=== PATIENT | female | born 1955 | race African-American/Black ===

== ENCOUNTER → 2021-01-12 | Outpatient (CLI) | payer OTHER ==
[~2021-01-12] MED LIST: ABILIFY 5 MG TAB5 M1 PO; AMARYL2 MG PO; CIPROFLOXACIN500 M1 PO; FLEXERIL PO; HUMALOG100 UNIT/1 SQ; LANTUS SC; LASIX 40 MG TAB40 M1 GT; LYRICA100 MG PO; NORCO 5-325 TA1 EACH PO; TRILEPTAL600 MG PO; WELLBUTRIN XL300 M1 PO; ZOFRAN ODT4 MG PO
== END | disposition home or self-care (01) ==
LOC: SPEC 11:24 → EDSTATUS 15:22
PROVIDERS: ATTEND Urology
DX: Z45.2 Encounter for adjustment and management of vascular access device (principal); Z79.899 Other long term (current) drug therapy; Z88.8 Allergy status to other drugs, medicaments and biological substances

== ENCOUNTER 2021-02-04 09:17 | Observation (INO) | payer OTHER ==
[~2021-02-04] VITALS: Ht 177.8 cm; Wt 149.7 kg
[2021-02-04 10:00] VITALS: BP 148/42
[2021-02-04 10:30] LABS: HEMATOCRIT 26.8 % (37.0-47.0); HEMOGLOBIN 8.5 gm/dL (12.0-15.0); MCH 29.2 pg (26.0-34.0); MCHC 31.8 g/dL (28.0-37.0); MCV 91.8 fL (80.0-100.0); RBC 2.92 mil/uL (4.20-5.00); RDW 19.7 % (10.5-14.5)
[2021-02-04 10:41] LABS: CALCIUM 8.5 mg/dL (8.5-10.1); CREATININE 2.1 mg/dL (0.6-1.0)
[2021-02-04 10:46] LABS: POTASSIUM 4.2 mmol/L (3.5-5.1)
[2021-02-04] MEDS ORDERED: NORVASC10 MG PO (11:09)
[2021-02-04] MEDS ORDERED: VITAMIN C500 M2 PO (11:11)
[2021-02-04] MEDS ORDERED: ASA81BEC PO (11:11)
[2021-02-04] MEDS ORDERED: IMURAN 50MG TAB50 M1 PO (11:12)
[2021-02-04] MEDS ORDERED: BUPROPION XL300 MG PO ×2 (11:12→11:13)
[2021-02-04] MEDS ORDERED: FLEXERIL PO (11:15)
[2021-02-04] MEDS ORDERED: ENOXAPARIN30 MG/0.1 SUBQ (11:15)
[2021-02-04] MEDS ORDERED: LANTUS SUBQ (11:17)
[2021-02-04] MEDS ORDERED: HYDRALAZINE 2525 MG PO (11:17)
[2021-02-04] MEDS ORDERED: HUMALOG KW100 UNIT/1 SUBQ (11:19)
[2021-02-04] MEDS ORDERED: ISOSORBIDE DINI30 MG PO (11:19)
[2021-02-04] MEDS ORDERED: NEURONTIN100 MG PO (11:20)
[2021-02-04] MEDS ORDERED: KAYEXALATE15 GM/601 PO (11:24)
[2021-02-04] MEDS ORDERED: LIDODERM1 EACH TOP (11:26)
[2021-02-04] MEDS ORDERED: UNICOMPLEX M TA1 TA1 PO (11:26)
[2021-02-04] MEDS ORDERED: RAYOS5 MG PO (11:27)
[2021-02-04] MEDS ORDERED: TORSEMIDE20 MG PO (11:28)
[2021-02-04] MEDS ORDERED: VITAMIN B-1100 M2 PO (11:28)
[2021-02-04] MEDS ORDERED: PROTONIX40 M2 PO (11:28)
[2021-02-04] MEDS ORDERED: MESTINON60 MG PO (11:29)
--- NOTE | 2021-02-04 16:13 | NUR ---
PT ARRIVED TO CCU ROOM 219 S/P CATH FOR EXTENDED RECOVERY. PT SET UP ON Q30 MIN VITALS PER SLIP FILLER RN. PT IS CURRENTLY ON BEDREST AND WILL BE OFF OF BEDREST AT 1750. PT IS TO DISCHARGE AT 1750.
[2021-02-04 16:17] VITALS: BP 142/49
--- NOTE | 2021-02-04 16:25 | NUR ---
PT'S TRANSPORTATION [facility] [phone]. RN CALLED BUT THEY STATED TO CALL WHEN PT IS READY TO LEAVE UNIT AND THEY WILL SEND TRANSPORTATION.
[2021-02-04 16:30] VITALS: BP 156/64
[2021-02-04 17:00] VITALS: BP 135/44
[2021-02-04 17:30] VITALS: BP 146/40
--- NOTE | 2021-02-04 17:48 | NUR ---
RN CALLED [facility] AT 1615 TO SET UP TRANSPORTATION FOR PT TO RETURN TO [facility]. [facility] STATED THEY CAN NOT ARRANGE TRANSPORTATION UNTIL RIGHT WHEN THE PT IS READY TO PROCUREMENT OFFICER. PT PROCUREMENT OFFICER TIME IS 1800. THIS RN CALLED AT 1745 TO ARRANGE 1800 PICKUP AND IS NOW BEING TOLD PROCUREMENT OFFICER FROM [facility] WILL NOT BE READY FOR ANOTHER 1 1/2-2 HOURS MAKING PROCUREMENT OFFICER TIME APPROXIMATELY 7:30-8:00 PM GA [phone].
--- NOTE | 2021-02-04 20:20 | NUR ---
1915- [facility] PICKED PT UP VIA STRETCHER. PT GIVEN D/C PAPERWORK AND IV AND RAGLAND CATHETER REMOVED. PT'S GROIN SITE REMAINS CDI, SOFT, NO HEMATOMA PRESENT. QUESTIONS ANSWERED.
== END 2021-02-04 19:30 ==
LOC: CATH 09:17 → 2N 16:23
PROVIDERS: ADMIT Nuclear Medicine Nuclear Cardiology; ATTEND Nuclear Medicine Nuclear Cardiology
DX: I70.213 Atherosclerosis of native arteries of extremities with intermittent claudication, bilateral legs (principal); L97.929 Non-pressure chronic ulcer of unspecified part of left lower leg with unspecified severity; I10 Essential (primary) hypertension; I70.1 Atherosclerosis of renal artery; E78.5 Hyperlipidemia, unspecified; Z79.899 Other long term (current) drug therapy

== ENCOUNTER 2021-05-26 13:12 | Inpatient (IN) | payer OTHER ==
[~2021-05-26] VITALS: Ht 162.6 cm; Wt 165.7 kg
--- NOTE | ~2021-05-26 | EMS ---
[facility] [address] [place] [address] EMS Patient Care Report Name: DELGADO BIGGS Room #: REG LISA Mckeon#: [id number] Admission: 05/26/21 Attend Phys: Discharge: Date of : 57 Report #: [id number] THIS REPORT FOR: //name// Report Transmitted: 05/26/2021 15:58 EMS Care Summary [place], [place]/[facility] Incident [id number] @ 05/26/2021 12:44 Incident Location [address] Patient DELGADO BIGGS Female, 65 Years 1955 Patient Address [address] [place] [address] Patient History Chronic Obstructive Pulmonary Disease (COPD),Hypertension (HTN),Morbid Obesity,Edema,Chronic Kidney Disease,Type 2 Diabetes,Cellulitis,Methicillin-resistant Staphylococcus aureus (MRSA), Patient Allergies Sulfa,Shrimp allergy,Amoxicillin, Patient Medications Acetaminophen, Gabapentin, ASA, Aripiprazole, Amlodipine, Protonix, Torsemide, Chief Complaint Altered Mental Status Disposition Transported No Lights/[place] [facility] Reason Sick Person Transported To [facility] Narrative M36 dispatched on a sick person. M36 arrived to half-way to find PT seated [facility] [address] [place] [address] EMS Patient Care Report Name: DELGADO BIGGS Room #: REG Linda#: [id number] Admission: 05/26/21 Attend Phys: Discharge: Date of : 57 Report #: [id number] in bed with head slumped forward. PT airway repositioned by EMS. PT alert to pain initially. PT chief complaint altered mental status. NH staff stated PT "dealing with retaining fluid for one week before today." NH staff stated PT normally alert and oriented x4. NH staff stated PT "not getting better with the meds for her fluid." NH staff stated history of chronic kidney disease "but not on dialysis yet." PT moved to stretcher by six person sheet lift. PT secured with seatbelts. PT abdi catheter bag found to have uncloudy yellow liquid in it. PT vitals monitored in route. PT report given. PT moved to hospital bed via four person sheet lift. PT care and belongings transferred to ER staff at [facility] without incident. M36 placed back in service. Initial Vitals @12:59P: 68,R: 12,BP: 148/66,Pain: 6/10,GCS: 12,SpO2: 55,Revised Trauma: 11, @13:05P: 68,R: 16,BP: 156/76,Pain: 6/10,GCS: 13,Glucose: 152,SpO2: 100,Revised Trauma: 12, Assessments @12:53MENTAL:Unresponsive,SKIN:HEENT:Eyes: Left: Constricted,Eyes: Right: Constricted,Neck/Airway: Obstructed,LUNG SOUNDS:ABDOMEN:PELVIS//GI:Pelvis GUOther,EXTREMITIES:Left Arm: Edema,Left Leg: Edema,Right Leg: Edema,Right Arm: Edema,PULSE:Radial: 2+ Normal,NEURO:@13:06MENTAL:Person Oriented,Event Oriented,Place Oriented,Confused,SKIN:Pale,HEENT:LUNG SOUNDS:ABDOMEN:PELVIS//GI:EXTREMITIES:PULSE:NEURO: Impression Altered Mental Status Procedures @12:55ALS AssessmentResponse: UnchangedSucceeded@13:06Oxygen FlowRate: 10 Device: Non Re-breather Mask (NRB) Response: Improvedcceed Timeline 12:42,Call Received 12:42,Dispatch Notified 12:44,Dispatched 12:44,En Route 12:51,On Scene 12:52,At Patient 12:55,ALS Assessment,Response: UnchangedSucceeded, 12:59,BP: 148/66 M,PULSE: 68,RR: 12 R,SPO2: 55 Ox,ETCO2: ,BG: ,PAIN: 6,GCS: 12, 13:05,BP: 156/76 M,PULSE: 68,RR: 16 R,SPO2: 100 Ox,ETCO2: ,B,PAIN: 6,GCS: 13, 13:06,Oxygen FlowRate: 10 Device: Non Re-breather Mask (NRB) Response: [facility] [place][note 2], [address] [address] EMS Patient Care Report Name: DELGADO BIGGS Room #: REG [facility].R.#: [id number] Admission: 05/26/21 Attend Phys: Discharge: Date of : 57 Report #: [id number] 13:06,Depart Scene 13:07,At Destination 13:22,Call Closed Disclaimer v1.1 Copyright 2020 [employer] This EMS Care Summary contains data elements from the applicable legal record (which may be displayed differently). It is designed to provide pertinent information for the following purposes: continuity of care, clinical quality, and state data reporting. The complete legal record is available to ED staff and administrators of the receiving hospital in [employer] Patient Tracker. All data is provided "as is."
[~2021-05-26 13:12] MED LIST changes: +ASA81BEC PO; +BUPROPION XL300 MG PO; +ENOXAPARIN30 MG/0.1 SUBQ; +HUMALOG KW100 UNIT/1 SUBQ; +HYDRALAZINE 2525 MG PO; +IMURAN 50MG TAB50 M1 PO; +ISOSORBIDE DINI30 MG PO; +KAYEXALATE15 GM/601 PO; +LANTUS SUBQ; +LIDODERM1 EACH TOP; +MESTINON60 MG PO; +NEURONTIN100 MG PO; +NORVASC10 MG PO; +PROTONIX40 M2 PO; +RAYOS5 MG PO; +TORSEMIDE20 MG PO; +UNICOMPLEX M TA1 TA1 PO; +VITAMIN B-1100 M2 PO; +VITAMIN C500 M2 PO
[2021-05-26 13:52] LABS: HEMATOCRIT 31.5 % (37.0-47.0); MCH 26.8 pg (26.0-34.0); MCHC 31.9 g/dL (28.0-37.0); MCV 84.2 fL (80.0-100.0); PLATELET COUNT 221 thou/uL (150-400); RBC 3.74 mil/uL (4.20-5.00); RDW 22.4 % (10.5-14.5)
[2021-05-26 13:57] LABS: URINE BILIRUBIN NEGATIVE (Negative); URINE BLOOD 3+ (Negative); URINE COLOR YELLOW; URINE GLUCOSE-RANDOM* NEGATIVE (Negative); URINE KETONES NEGATIVE (Negative); URINE PROTEIN (DIPSTICK) TRACE (Negative); URINE UROBILINOGEN 0.2 E.U./dl (0.2-1.0)
[2021-05-26 14:01] LABS: URINE CLARITY SL HAZY; URINE LEUKOCYTES-REFLEX 3+ (Negative); URINE NITRITE-REFLEX POSITIVE (Negative)
[2021-05-26 14:06] LABS: SQUAMOUS 0-3 Few /LPF (0-3)
[2021-05-26 14:07] LABS: BACTERIA-REFLEX >30 Many /HPF (None Seen); CASTS None Seen /LPF (None Seen); URINE WBC-REFLEX 6-15 Few /HPF (0-5)
[2021-05-26 14:07] LABS: CALCIUM 8.2 mg/dL (8.5-10.1); POTASSIUM 3.4 mmol/L (3.5-5.1)
[2021-05-26 14:08] LABS: CRYSTALS None Seen /LPF (None Seen)
[2021-05-26 14:15] LABS: ALBUMIN 3.2 g/dL (3.4-5.0); TOTAL BILIRUBIN 0.9 mg/dL (0.2-1.0); TOTAL PROTEIN 7.6 g/dL (6.4-8.2)
[2021-05-26 14:24] LABS: ABSOLUTE NEUTROPHILS 10.6 thou/uL (1.4-8.2); ANISOCYTOSIS 1+
[2021-05-26 14:30] LABS: BE(vivo) 12.6 mmol/L (-2 to +3); HCO3 37.7 mmol/L (22.0-26.0); PCO2 51.6 mmHg (35.0-45.0); PO2 162.9 mmHg (80.0-100.0); pH 7.482 (7.360-7.450); sO2 99.2 % (92.0-98.0)
[2021-05-26 14:32] LABS: APTT 30.2 Seconds (24.5-32.8); INR 1.17; PROTIME 12.7 Seconds (10.5-12.1)
--- NOTE | 2021-05-26 17:55 | NUR ---
65-year-old female presented to ED on 05-26-21 from [facility] for altered mental status fluid retention and shortness of air. ID NOW in the ED is Negative and per ED Triage Assessment showing as not vaccinated; however the patient reports to ED that she is vaccinated. [facility] to verify and notify staff at [facility]. The patient has been admitted for acute hypoxic respiratory failure secondary to fluid overload, CHF Exacerbation, UTI, Elevated D-dime, Acute on Chronic Renal Failure, HTN, Hypokalemia, IDDM, PVD/PAD, Myasthenia gravis, diverticulosis, depression and obesity. Kylie Orr is listed as cousin and family contact at [phone]. Spoke with Shabbir liaison with [facility] who will follow patient while in house with anticipated discharge back to [facility]. CM will continue to follow for discharge needs as plan of care by medical team is reviewed for discharge need.
--- NOTE | 2021-05-26 18:00 | NUR ---
CM UPDATED: [facility] confirmed that patient was fully vaccinated on 03/05 and 04/01.
[2021-05-26 21:06] LABS: HEMATOCRIT 28.6 % (37.0-47.0); MCH 26.3 pg (26.0-34.0); MCHC 31.6 g/dL (28.0-37.0); MCV 83.3 fL (80.0-100.0); RBC 3.44 mil/uL (4.20-5.00); RDW 22.5 % (10.5-14.5); WBC 13.4 thou/uL (4.0-11.0)
[2021-05-26 21:22] LABS: INR 1.3
[2021-05-26 23:15] VITALS: BP 153/66
[2021-05-27 04:18] VITALS: BP 167/60
[2021-05-27] MEDS ORDERED: SENNA PLUS TAB1 EACH PO (04:25)
[2021-05-27] MEDS ORDERED: TRAVOPROST2.5 ML OPHTHALMIC (04:25)
[2021-05-27] MEDS ORDERED: FLONASE 0.05%50 MCG NARES (04:33)
[2021-05-27] MEDS ORDERED: HYDROCODON-ACE1 EAC7 PO (04:33)
[2021-05-27 04:53] VITALS: BP 160/57
[2021-05-27 05:31] LABS: ABSOLUTE NEUTROPHILS 9.3 thou/uL (1.4-8.2); BASOPHILS 0.7 % (0.0-2.0); EOSINOPHILS 2.1 % (0.0-3.0); MCH 26.5 pg (26.0-34.0); MCV 82.9 fL (80.0-100.0); MONOCYTES 8.7 % (1.0-8.0); PLATELET COUNT 208 thou/uL (150-400); POLYS 80.5 % (36.0-66.0); RBC 3.38 mil/uL (4.20-5.00); RDW 21.6 % (10.5-14.5); WBC 11.6 thou/uL (4.0-11.0)
[2021-05-27 05:40] LABS: CALCIUM 8.3 mg/dL (8.5-10.1); CREATININE 2.6 mg/dL (0.6-1.0); PHOSPHORUS 5.1 mg/dL (2.5-4.9); POTASSIUM 3.1 mmol/L (3.5-5.1)
[2021-05-27 07:21] VITALS: BP 143/71
--- NOTE | 2021-05-27 10:42 | NUR ---
Notification of "ulcer". Admitted with CHF exacerbation, fluid overload. Pt with extreme class III obesity, BMI 63.8, also hx DM, myastenia gravis, PVD, HTN. Wt is up nearly 40 lb from 01/2021. On lasix, renal will be managing fluid status. On heart healthy, 2g Na diet. Pt voiced no questions regarding diet order, except request to have fresh fruit on each tray. BG adequate. Does have toe amputation. Low nutrition risk.
--- NOTE | 2021-05-27 11:13 | 2DMMODE ---
[facility] [place] [address] 2 D/M-MODE ECHOCARDIOGRAM Name: DELGADO BIGGS Room #: 203-P ADM IN M.R.#: [id number] Admission: 05/26/21 Attend Phys: Edilson Pinto MD Discharge: Date of : 57 Report #: [id number] THIS REPORT FOR: cc: Micah Fonseca MD, Christopher B. MD Santiago, Patrick MD [facility] ~ APPROVED REPORT Study performed: 05/27/2021 09:12:49 EXAM: Comprehensive 2D, Doppler, and color-flow Echocardiogram Patient Location: Bedside Room #: 203 Status: routine BSA: 2.55 HR: 59 bpm BP: 143/71 mmHg Rhythm: Bradycardia Other Information Study Quality: Technically Difficult Technically limited study due to body habitus, inability to position patient. Indications Congestive Heart Failure Diabetes Hypertension/HDD 2D Dimensions IVSd: 11.47 (7-11mm) LVDd: 50.93 mm PWd: 11.32 (7-11mm) LVDs: 27.65 (25-40mm) Left Atrium: 42.19 (27-40mm) Aortic Root: 27.69 mm IVC: 28.00 mm Aortic Valve AoV Peak Yousuf.: 2.00 m/s AO Peak Gr.: 16.00 mmHg LVOT Max P.18 mmHg LVOT Max V: 1.14 m/s Mitral Valve E/A Ratio: 0.3 [facility] [address] [place] [address] 2 D/M-MODE ECHOCARDIOGRAM Name: DELGADO BIGGS Room #: 203-P [facility] IN ..#: [id number] Admission: 05/26/21 Attend Phys: Edilson Pinto, Discharge: Date of : 57 Report #: [id number] MV Decel. Time: 288.98 ms MV E Max Yousuf.: 0.36 m/s MV A Yousuf.: 1.14 m/s MV PHT: 83.80 ms Pulmonary Valve PV Peak Yousuf.: 1.45 m/s PV Peak Gr.: 8.43 mmHg Tricuspid Valve TR Peak Yousuf.: 4.00 m/s TR Peak Gr.: 64.10 mmHg PA Pressure: 74.00 mmHg Left Ventricle The left ventricle is normal size. There is normal LV segmental wall motion. There is normal left ventricular wall thickness. The left ventricular systolic function is normal. The left ventricular ejection fraction is within the normal range. LVEF is 65-70%. This study is not technically sufficient to allow evaluation of the LV diastolic function. Right Ventricle Right ventricle is at the upper limits of normal. The right ventricular systolic function is normal. Atria Left atrium is not well visualized. Right atrium is not well visualized. Aortic Valve The aortic valve is normal in structure. No aortic regurgitation is present. There is no aortic valvular stenosis. Mitral Valve The mitral valve is normal in structure. Mild mitral regurgitation. No evidence of mitral valve stenosis. Tricuspid Valve The tricuspid valve is normal in structure. There is mild tricuspid regurgitation. Estimated PAP 74 mmHg. There is severe pulmonary hypertension. Pulmonic Valve The pulmonary valve is normal in structure. There is no pulmonic valvular regurgitation. [facility] [address] [address] 2 D/M-MODE ECHOCARDIOGRAM Name: DELGADO BIGGS Shon Room #: 203-P [facility] IN .R.#: [id number] Admission: 05/26/21 Attend Phys: Edilson Pinto, Discharge: Date of : 57 Report #: [id number] Great Vessels The aortic root is normal in size. IVC is dilated and collapses <50% with inspiration. Pericardium There is no pericardial effusion. <Conclusion> Normal left ventricular size/wall thickness Hyperdynamic systolic function, ejection fraction 65% Normal right ventricular size/function Normal atrial size Color-flow Doppler study was performed of the aortic/mitral/tricuspid/pulmonary valve Normal aortic valve structure and function Mild mitral valve insufficiency Mild tricuspid valve insufficiency Severe pulmonary hypertension PA pressure estimated 74 mmHg No pericardial effusion Normal aortic root size. <ELECTRONICALLY SIGNED> By: Josué Winters MD, [facility] 05/27/21 1112 11 11 Josué Winters MD, FACC /INF
[2021-05-27 11:48] VITALS: BP 127/47
--- NOTE | 2021-05-27 14:52 | NUR ---
PT RESTING COMFORTABLY. HEPARIN GTT IN PLACE AND TITRATED PER [facility] PROTOCAL. PLAN FOR ECHO TODAY. WOUND CARE CONSULTED. PT AFEBRILE, ADEQUATE UOP, BM X2, APPROPRIATE APPETITE. POTASSIUM REPLACED PER [facility] PROT[facility]. PT HAS BEEN THOUROUGHLY UPDATED AND EDUCATED ON PT CONDITION AND POC. PT SLOWLY PROGRESSING TOWARDS POC.
[2021-05-27 15:27] VITALS: BP 125/63
--- NOTE | 2021-05-27 17:46 | NUR ---
Case discussed with the care team. Pt is from fdc care at [facility]. Update provided. They are holding her bed. Pt now on heprin gtt and getting echo. Clinical updated faxed per the dc vacation planner. Discharge timeframe is uncertain. Will follow.
[2021-05-27 20:06] VITALS: BP 136/64
--- NOTE | 2021-05-28 01:26 | NUR ---
ASSUMED CARE OF PT AT 1900, PT SLEEPING IN NO APPARENT DISTRESS. ASSESSMENT COMPLETED NOTED. PT REMAINS ON HEPARIN DRIP AT THIS TIME ORDERED. RAGLAND IN PLACE. PT DENIES PAIN, WILL CONTINUE TO WORK TOWARDS PT'S POC.
[2021-05-28 04:27] VITALS: BP 153/70
--- NOTE | 2021-05-28 07:08 | EKG ---
[address] [address] ELECTROCARDIOGRAM REPORT Name: DELGADO BIGGS Room #: 203-P ADM IN M.R.#: [id number] Admission: 05/26/21 Attend Phys: Edilson Pinto MD Discharge: Date of : 57 Report #: [id number] [facility] ED Test Date: 2021-05-26 Test Time: 13:18:26 Pat Name: DELGADO BIGGS Department: Room: [facility] Gender: F Clutch Inspector: : 1955 Requested By: Benito Lim Order Number: [id number] MD: Josué Winters Measurements Intervals Raymond Rate: 71 P: 0 MA: QRS: 44 QRSD: 126 T: QT: 444 QTc: 483 Interpretive Statements NSR, artifact Nonspecific intraventricular conduction delay Nonspecific T abnormalities, diffuse leads Compared to ECG 06/05/2013 11:56:38 Intraventricular conduction delay now present T-wave abnormality now present Sinus bradycardia no longer present Electronically Signed On 05-28-2021 7:08:21 CDT by Josué Winters [email or web address] <ELECTRONICALLY SIGNED> By: Josué Winters MD, FACC 05/28/21 0708 1318 1318 Josué Winters MD, [facility] /EPI
[2021-05-28 07:30] VITALS: BP 146/63
[2021-05-28 09:02] LABS: CALCIUM 8.4 mg/dL (8.5-10.1); CREATININE 2.6 mg/dL (0.6-1.0); POTASSIUM 3.9 mmol/L (3.5-5.1)
--- NOTE | 2021-05-28 11:10 | NUR ---
FAXED CLINICAL UPDATES AND NEGATIVE COVID RESULT (05/26/21) TO [facility]. WILL CONFIRM DOLLY/LIAISON RECEIVED. KRISAT Handley [phone]; FAX [phone]; M [phone] DOLLY/LIAISON
--- NOTE | 2021-05-28 11:13 | NUR ---
FAXED CLINICAL UPDATES AND NEGATIVE COVID RESULT (05/26/21) TO [facility] WITH NOTATION THAT PATIENT WILL DISCHARGE ON 05/31/21. WILL CONFIRM WITH DOLLY/LIAISON THAT THEY RECEIVED. [facility] P [phone]; FAX [phone]; Gavi [phone] DOLLY
[2021-05-28 11:53] VITALS: BP 137/49
--- NOTE | 2021-05-28 12:02 | NUR ---
No weekend dc anticipated. [facility] updated. Will f/u Monday to see if the pt is medically ready to dc back to ltc there.
[2021-05-28 12:41] VITALS: BP 137/49
--- NOTE | 2021-05-28 13:55 | NUR ---
PT RESTING COMFORTABLY TODAY. DOWN TO NUCLEAR MED FOR V/Q SCAN, PERFUSION ONLY. HEPARIN GTT IN PLACE, WITH THERAPEUTIC APTT. NEXT DRAW SCHEDULED FOR 1445. PT AFEBRILE, ADEQUATE UOP, BM X1, APPROPRIATE APPETITE. PT CONTINUES TO BE SOMULENT TODAY. PT HAS BEEN THOUROUGHLY UPDATED AND EDUCATED ON PT CONDITION AND POC. PT SLOWLY PROGRESSING TOWARDS POC.
[2021-05-28 16:25] VITALS: BP 137/66
--- NOTE | 2021-05-28 17:02 | NUR ---
Pt had called security this afternoon requesting assitance locating her orange pencil bag which she uses as a purse with ID etc... It was not in her room or with security or in the ER. Telephonic Rn called the facility[facility] and they brought if over to her and is now in the room with her. Nursing in the room as well as aware. Security also aware that it has been located.
[2021-05-28 19:30] VITALS: BP 144/56
[2021-05-28 19:33] LABS: PROT/CREAT RATIO 0.3; URINE CREATININE-RANDOM* 48.4 mg/dL; URINE PROTEIN-RANDOM* 13.4 mg/dL (<11.9)
[2021-05-29] VITALS (7 sets, daily range): BP systolic 125–180; BP diastolic 55–67
[2021-05-29 00:06] LABS: GLYCOHEMOGLOBIN (HGB A1C) 6.4 % (4.8-5.6)
--- NOTE | 2021-05-29 04:46 | NUR ---
Pt. rested quietly at intervals during the night when checked on during frequent rounds. She c/o bilateral arm pain and back pain. Po pain meds given with some relief of pain (see emar). Heparin gtt. infusing without difficulty. Bed alarm is on.
[2021-05-29 06:20] LABS: HEMATOCRIT 27.9 % (37.0-47.0); HEMOGLOBIN 9.1 gm/dL (12.0-15.0); MCHC 32.5 g/dL (28.0-37.0); RBC 3.36 mil/uL (4.20-5.00); RDW 21.4 % (10.5-14.5); WBC 8.9 thou/uL (4.0-11.0)
[2021-05-29 06:31] LABS: ALBUMIN 3.3 g/dL (3.4-5.0); CALCIUM 8.2 mg/dL (8.5-10.1); CREATININE 2.2 mg/dL (0.6-1.0); PHOSPHORUS 3.7 mg/dL (2.5-4.9); POTASSIUM 3.9 mmol/L (3.5-5.1)
--- NOTE | 2021-05-29 18:56 | NUR ---
PT RESTED IN BED COMFORTABLY THIS SHIFT TURNING Q 2 HOURS. PT TOOK IN GOOD PO AND REMIANED ON 2LNC. COPNTINUED LASIX AND RAGLAND CATHETER MAINTIANED. WILL CONTINUE TO ASSESS.
--- NOTE | 2021-05-30 03:38 | NUR ---
Assumed pt care at 1900. Pt is alert and oriente but very lethargic. No sign of distress noted in pt. Pt is stable. Assessment completed and documented. Pain med administered to pt. Kimball in place. Scheduled meds administered to pt. No acute events through the night. Continue to monitor. No further needs at this time.
[2021-05-30 04:30] VITALS: BP 142/58
[2021-05-30 05:53] LABS: ALBUMIN 3.1 g/dL (3.4-5.0); CREATININE 2.1 mg/dL (0.6-1.0); PHOSPHORUS 3.2 mg/dL (2.5-4.9); POTASSIUM 4.3 mmol/L (3.5-5.1)
[2021-05-30 07:26] VITALS: BP 168/66
[2021-05-30 11:55] VITALS: BP 145/60
[2021-05-30 15:22] VITALS: BP 149/63
--- NOTE | 2021-05-30 15:41 | NUR ---
PT ALERT AND ORIENTED TIMES THREE. VSS, RAGLAND TO DD. PT C/O PAIN PRN PAIN MEDICATIONS GIVEN WITH GOOD RELIEF. PT TOLERATES MEDS AND MEALS. WILL CONTINUE TO MONITOR.
[2021-05-30 20:05] VITALS: BP 149/53
[2021-05-31 03:05] VITALS: BP 149/63
[2021-05-31 05:06] LABS: ALBUMIN 3.3 g/dL (3.4-5.0); CALCIUM 8.4 mg/dL (8.5-10.1); CREATININE 2.2 mg/dL (0.6-1.0); PHOSPHORUS 3.7 mg/dL (2.5-4.9)
[2021-05-31 08:15] VITALS: BP 151/51
--- NOTE | 2021-05-31 11:00 | HC ---
[facility] [place] [address] CONSULTATION Name: DELGADO BIGGS Room #: 203-P ADM IN M.R.#: [id number] Admission: 05/26/21 Attend Phys: Edilson Pinto MD Discharge: Date of : 57 Report #: [id number] THIS REPORT FOR: cc: Micah Fonseca MD, Christopher B. MD Althoff,Jarvis Bocanegra MD ~ DATE OF SERVICE: 05/28/2021 CHIEF COMPLAINT: Left heel ulcer and bilateral lower extremity edema. HISTORY OF PRESENT ILLNESS: This is a 65-year-old female patient whom I have seen in the past over at [facility]. She was admitted to the hospital with worsening shortness of breath and felt to have significant congestive heart failure. She has had a chronic ulcer to her left heel. I have been asked to see her with regard to wound care. She denies pain associated with this and states she is overall feeling somewhat better this morning. PAST MEDICAL HISTORY: Positive for type 2 diabetes mellitus, she is status post left great toe amputation, history of hypertension, myasthenia gravis, neuropathy, congestive heart failure, peripheral vascular disease, hyperlipidemia, coronary artery disease, pulmonary hypertension, history of chronic kidney disease. SOCIAL HISTORY: Negative for alcohol or tobacco use. FAMILY HISTORY: Noncontributory. CURRENT MEDICATIONS: Include acetaminophen, amlodipine, aripiprazole, Wellbutrin, cyclobenzaprine, furosemide, gabapentin, glucagon, hydrocodone, insulin, latanoprost, prednisone, pyridostigmine. ALLERGIES: CLAVULANIC ACID AND AMOXICILLIN. REVIEW OF SYSTEMS: CONSTITUTIONAL: The patient denies fever, chills or weight loss. NEUROLOGICAL: The patient denies focal weakness, numbness, tingling. EYES: The patient denies visual changes, redness or drainage. ENT: The patient denies earache, nasal drainage, sore throat. CARDIOVASCULAR: The patient denies chest pain or palpitations. PULMONARY: The patient does note shortness of breath, especially with exertion and orthopnea. GASTROINTESTINAL: The patient denies nausea, vomiting, diarrhea or abdominal pain. ORTHOPEDIC: The patient complains of swelling of lower extremities and a chronic ulcer to her left heel. [address] [address] CONSULTATION Name: DELGADO BIGGS Room #: 203-P ADM IN .R.#: [id number] Admission: 05/26/21 Attend Phys: Edilson Pinto MD Discharge: Date of : 57 Report #: [id number] Others systems in a 14-point review of systems are negative. PHYSICAL EXAMINATION: VITAL SIGNS: At this time include temperature 97.7, pulse 52, respiratory rate of 18, blood pressure 146/63. GENERAL: This is a chronically ill-appearing female patient who appears to be in mild discomfort. HEENT: Head is normocephalic. Nose and throat are clear. NECK: Supple. LUNGS: Diminished. HEART: Irregular. ABDOMEN: Obese, soft, nontender. EXTREMITIES: Lower extremities demonstrate feet are warm and dry. She has 3+ edema to both lower extremities from the mid thigh to her feet. There is a small circular ulceration to her left heel that is healthy, clean and granulating without evidence of infection. LABORATORY STUDIES: Include white blood cell count 11.6 with hemoglobin 9.0, hematocrit of 28.0, sodium 143, potassium 3.9, chloride 98, CO2 of 42, BUN 56, creatinine 2.6, glucose is 262, albumin is 3.0. CLINICAL IMPRESSION: 1. Stage 3 pressure ulceration to the left heel. 2. Bilateral lower extremity lymphedema, likely secondary to volume overload due to congestive heart failure and chronic kidney disease. 3. Type 2 diabetes mellitus. 4. Morbid obesity. 5. History of myasthenia gravis. RECOMMENDATIONS: At this point in time, we will recommend Xeroform and a border foam to the left heel daily. She will need Prevalon boots while in bed. Tubigrip stockings would be a good place to start for very gentle compression. I do not want to do too much of a fluid shift with aggressive wrappings due to her exacerbation of heart failure, although she may benefit from some lymphedema therapy once her fluid volume status has improved. I appreciate being asked to see her in consultation. <ELECTRONICALLY SIGNED> By: Jarvis Hudson MD 05/31/21 1100 1054 11 Jarvis Hudson MD /nt
[2021-05-31 16:25] VITALS: BP 155/62
--- NOTE | 2021-05-31 16:35 | NUR ---
ASSESSMENT CHARTED. MEDS PER MAR - COLTON DIET AND FLUIDS. NO CO'S OF PAIN OR NAUSEA. PT HAS SPENT THE DAY RESTING IN BED. STARTED ON LEVAQUIN ORDERED. INSULIN DOSE INCREASED FOR THE EVENING. ACCUCHECKS A CHARTED - COVERED PER SSI. SEEN BY WOULD CARE - XEROFORM AND MEPILEX PLACED TO LEFT HEEL ORDERED 0 AWAITING HEEL PROTECTORS AND LUCY WRAPS FROM [facility] SO THEY CAN BE APPLIED. PT WITH NO CO'S AT THE PRESENT TIME. PT CAN BE VERY LETHARGIC AT TIMES DOES AWAKEN FAIRLY EASILY.
[2021-05-31 19:32] VITALS: BP 155/56
[2021-06-01 04:07] VITALS: BP 145/60
[2021-06-01 05:21] LABS: HEMATOCRIT 27.7 % (37.0-47.0); HEMOGLOBIN 9.1 gm/dL (12.0-15.0); MCHC 32.9 g/dL (28.0-37.0); RBC 3.37 mil/uL (4.20-5.00); RDW 22.2 % (10.5-14.5); WBC 7.8 thou/uL (4.0-11.0)
[2021-06-01 05:25] LABS: ALBUMIN 3.1 g/dL (3.4-5.0); CALCIUM 8.6 mg/dL (8.5-10.1); CREATININE 2.1 mg/dL (0.6-1.0); PHOSPHORUS 3.7 mg/dL (2.5-4.9); POTASSIUM 4.4 mmol/L (3.5-5.1)
--- NOTE | 2021-06-01 05:56 | NUR ---
HEEL PROTECTORS AND ACEWRAP NOT AVAILABLE THIS SHIFT.ELEVATED BILATERAL LEGS WITH PILLOWS.PAIN WELL CONTROLLED.PATIENT ON ROOM AIR.SMEAR OF BM THIS MORNING.MONITOR SHOWS SB.POC CONTINUED.
[2021-06-01 08:00] VITALS: BP 149/85
[2021-06-01 15:00] VITALS: BP 137/58
--- NOTE | 2021-06-01 15:57 | NUR ---
Patient reports she does not want to return to [facility]. She reports care concerns. Offered for her to speak with liason regarding concerns. [facility] liason to meet with patient.
--- NOTE | 2021-06-01 18:12 | NUR ---
ASSESSMENT CHARTED . MEDS PER DEC - DIET AND FLUIDS. ACCUCHECKS CHARTED - COVERED PER SSI. DRESSING TO L HEEL COMPLETED THEN TUBIGRIP APPLIED AND PROFA BOOTS APPLIED PT GIVEN HYDRO FOR CO'S OF PAIN IN BACK WITH GOOD RELIEF AND FLEXERIL FOR SPASMS WITH EFFECT. NO CO'S AT THE PRESENT TIME.
[2021-06-02 03:35] LABS: ALBUMIN 3.4 g/dL (3.4-5.0); CALCIUM 8.9 mg/dL (8.5-10.1); CREATININE 2.4 mg/dL (0.6-1.0); PHOSPHORUS 4.1 mg/dL (2.5-4.9); POTASSIUM 4.5 mmol/L (3.5-5.1)
[2021-06-02 04:39] VITALS: BP 124/50
--- NOTE | 2021-06-02 07:03 | NUR ---
BM X 1.PAIN WELL CONTROLLED.RAGLAND TO DD.MONITOR SHOWS SB.POC CONTINUED.
[2021-06-02 07:35] VITALS: BP 136/64
[2021-06-02] MEDS ORDERED: KLOR-CON 10 ER10 MEQ PO (11:26)
[2021-06-02] MEDS ORDERED: DEMADEX20 MG PO (11:26)
[2021-06-02] MEDS ORDERED: LANTUS100 UNIT/M SUBQ (11:27)
[2021-06-02] MEDS ORDERED: CEFUROXIME250 MG PO (11:28)
[2021-06-02 11:31] VITALS: BP 153/46
--- NOTE | 2021-06-02 11:42 | NUR ---
Reassessment of px completed at 0850 but documented at 1006.
--- NOTE | 2021-06-02 15:12 | NUR ---
assessment as charted - meds as per dec - given hydocodone for co's of pain with good relief. angie diet and fluids. no co's of nausea. pt transfered back to [facility] this afternoon. report called to unit, pt left unit via stretcher.
--- NOTE | 2021-06-02 17:15 | NUR ---
DOLLY FROM [facility] MET WITH PATIENT. PATIENT IS AGREEABLE TO RETURN TO [facility] TODAY. FAXED ORDERS. CHART COPIED. ROSEMARIE CALHOUN FOR 1500. RN TO call report
== END 2021-06-02 15:36 | DRG 291 ==
LOC: ER 13:12 → 2N 17:12 → EROBS 17:12 → 2N 05-27 05:03
PROVIDERS: Internal Medicine Nephrology; Nurse Practitioner; Nurse Practitioner Family; ADMIT Internal Medicine; ATTEND Internal Medicine
DX: I13.0 Hypertensive heart and chronic kidney disease with heart failure and stage 1 through stage 4 chronic kidney disease, or unspecified chronic kidney disease (principal); L89.623 Pressure ulcer of left heel, stage 3; J96.01 Acute respiratory failure with hypoxia; N39.0 Urinary tract infection, site not specified; N17.9 Acute kidney failure, unspecified; E44.0 Moderate protein-calorie malnutrition; N18.4 Chronic kidney disease, stage 4 (severe); Z68.44 Body mass index [BMI] 60.0-69.9, adult; I50.9 Heart failure, unspecified; Z20.822 Contact with and (suspected) exposure to COVID-19; E11.51 Type 2 diabetes mellitus with diabetic peripheral angiopathy without gangrene; E78.5 Hyperlipidemia, unspecified; I25.10 Atherosclerotic heart disease of native coronary artery without angina pectoris; F32.9 Major depressive disorder, single episode, unspecified; I27.20 Pulmonary hypertension, unspecified; K21.9 Gastro-esophageal reflux disease without esophagitis; I89.0 Lymphedema, not elsewhere classified; E66.01 Morbid (severe) obesity due to excess calories; E87.70 Fluid overload, unspecified; E87.6 Hypokalemia; D64.9 Anemia, unspecified; R53.81 Other malaise; E11.22 Type 2 diabetes mellitus with diabetic chronic kidney disease; G47.33 Obstructive sleep apnea (adult) (pediatric); G70.00 Myasthenia gravis without (acute) exacerbation; E11.42 Type 2 diabetes mellitus with diabetic polyneuropathy; Z79.82 Long term (current) use of aspirin; Z86.14 Personal history of Methicillin resistant Staphylococcus aureus infection; Z89.421 Acquired absence of other right toe(s); Z88.1 Allergy status to other antibiotic agents; Z88.8 Allergy status to other drugs, medicaments and biological substances; Z79.899 Other long term (current) drug therapy
CPT/HCPCS: 10081

== ENCOUNTER → 2021-06-15 | Outpatient (CLI) | payer OTHER ==
[~2021-06-15] MED LIST changes: +CEFUROXIME250 MG PO; +DEMADEX20 MG PO; +FLONASE 0.05%50 MCG NARES; +HYDROCODON-ACE1 EAC7 PO; +KLOR-CON 10 ER10 MEQ PO; +LANTUS100 UNIT/M SUBQ; +SENNA PLUS TAB1 EACH PO; +TRAVOPROST2.5 ML OPHTHALMIC
== END ==
LOC: ULTRA 11:40
PROVIDERS: ATTEND Internal Medicine
DX: N63.20 Unspecified lump in the left breast, unspecified quadrant (principal)

== ENCOUNTER 2021-06-16 16:41 | Emergency (ER) | payer OTHER ==
[~2021-06-16] VITALS: Ht 177.8 cm; Wt 140.6 kg
--- NOTE | ~2021-06-16 | EMS ---
[facility] [address] [place] [address] EMS Patient Care Report Name: DELGADO BIGGS Room #: REG LISA Mckeon#: [id number] Admission: 06/16/21 Attend Phys: Discharge: Date of : 57 Report #: [id number] THIS REPORT FOR: //name// Report Transmitted: 06/16/2021 16:26 EMS Care Summary [place], [place]/[facility] Incident [id number] @ 06/16/2021 16:06 Incident Location [address] Patient DELGADO BIGGS Female, 65 Years 1955 Patient Address [address] [place] [address] Patient History Chronic Obstructive Pulmonary Disease (COPD),Hypertension (HTN),Morbid Obesity,Edema,Chronic Kidney Disease,Type 2 Diabetes,Cellulitis,Methicillin-resistant Staphylococcus aureus (MRSA), Patient Allergies Sulfa,Shrimp allergy,Amoxicillin, Patient Medications Torsemide, Aripiprazole, Acetaminophen, Gabapentin, Protonix, ASA, Amlodipine, Chief Complaint BACK PAIN Disposition Transported No Lights/[place] Dispatch Reason Back Pain (Non-Traumatic) Transported To [facility] Narrative RESPONDED NON-EMERGENT TO [facility] FOR A FALL. UPON ARRIVAL [facility] [address] [place] [address] EMS Patient Care Report Name: DELGADO BIGGS Room #: REG LISA Mckeon#: [id number] Admission: 06/16/21 Attend Phys: Discharge: Date of : 57 Report #: [id number] PATIENT WAS LAYING IN BED WITH COMPLAINT OF BACK PAIN, STATING THAT WHILE RECIEVING A MAMOGRAM YESTERDAY SHE FELL TWICE. COMPLAINED OF LOWER BACK PAIN THAT WAS WORSE THAN THE DAY BEFORE WHEN THE FALL OCCURRED. PATIENT WAS ASSISTED FROM HER BED TO THE STRETCHER BY MY PARTNER AND I. PATIENT WAS SECURED WITH SEAT BELTS AND RAILS UP AND IN THE LOCKED POSITION. PROPER COVID PRECAUTIONS WERE TAKEN AND A MASK WAS PLACED ON THE PATIENT. PATIENT WAS TRANSPORTED TO [facility] AND PATIENT CARE WAS TRANSFERRED TO THE NURSE. Initial Vitals @16:32P: 62,R: 15,BP: 146/62,Pain: 4/10,GCS: 15,CO: 3,SpO2: 91,Revised Trauma: 12, @16:24P: 62,R: 15,BP: 154/66,Pain: 4/10,GCS: 15,CO: 1,SpO2: 89,Revised Trauma: 12, Assessments @16:16MENTAL:Time Oriented,Event Oriented,Place Oriented,Person Oriented,SKIN:No Abnormalities,HEENT:Head/Face: No Abnormalities,Eyes: No Abnormalities,LUNG SOUNDS:ABDOMEN:PELVIS//GI:EXTREMITIES:Left Arm: No Abnormalities,Right Arm: No Abnormalities,PULSE:NEURO:No Abnormalities, Impression Back Pain Procedures @16:16BLS AssessmentResponse: Unchanged@16:18StretcherResponse: Unchanged Timeline 16:03,Call Received 16:03,Dispatch Notified 16:06,Dispatched 16:07,En Route 16:12,On Scene 16:16,At Patient 16:16,BLS Assessment,Response: Unchanged 16:18,Stretcher,Response: Unchanged 16:24,BP: 154/66 M,PULSE: 62,RR: 15 R,SPO2: 89 Ox,ETCO2: ,BG: ,PAIN: 4,GCS: 15, 16:32,BP: 146/62 M,PULSE: 62,RR: 15 R,SPO2: 91 Ox,ETCO2: ,BG: ,PAIN: 4,GCS: 15, 16:33,Depart Scene 16:35,At Destination 17:04,Call Closed Disclaimer v1.1 Copyright 2020 [employer] This EMS Care Summary contains data elements from the applicable legal record (which may be displayed differently). It is designed to provide pertinent information for the following purposes: continuity of care, clinical quality, [address] [address] EMS Patient Care Report Name: DELGADO BIGGS [facility] #: [id number] Admission: 06/16/21 Attend Phys: Discharge: Date of : 57 Report #: [id number] and state data reporting. The complete legal record is available to ED staff and administrators of the receiving hospital in [employer]'s Patient Tracker. All data is provided "as is."
[2021-06-16 23:27] VITALS: BP 150/60
== END 2021-06-16 23:29 ==
LOC: ER 16:41
DX: M54.5 Low back pain (principal); E11.40 Type 2 diabetes mellitus with diabetic neuropathy, unspecified; I13.0 Hypertensive heart and chronic kidney disease with heart failure and stage 1 through stage 4 chronic kidney disease, or unspecified chronic kidney disease; I50.9 Heart failure, unspecified; N18.9 Chronic kidney disease, unspecified; E11.22 Type 2 diabetes mellitus with diabetic chronic kidney disease; I25.10 Atherosclerotic heart disease of native coronary artery without angina pectoris; I73.9 Peripheral vascular disease, unspecified; E78.5 Hyperlipidemia, unspecified; F32.9 Major depressive disorder, single episode, unspecified; K21.9 Gastro-esophageal reflux disease without esophagitis; Z79.4 Long term (current) use of insulin; Z79.899 Other long term (current) drug therapy; Z79.1 Long term (current) use of non-steroidal anti-inflammatories (NSAID); Z79.82 Long term (current) use of aspirin; Z88.1 Allergy status to other antibiotic agents; Z88.8 Allergy status to other drugs, medicaments and biological substances

== ENCOUNTER 2021-08-02 13:01 | Inpatient (IN) | payer OTHER ==
[~2021-08-02] VITALS: Ht 152.4 cm; Wt 152.0 kg
--- NOTE | ~2021-08-02 | EMS ---
[facility] [address] [place] [address] EMS Patient Care Report Name: DELGADO BIGGS Room #: 243-P ADM IN M.R.#: [id number] Admission: 08/02/21 Attend Phys: Shoshana Zambrano MD Discharge: Date of : 57 Report #: [id number] THIS REPORT FOR: //name// Report Transmitted: 08/15/2021 08:47 EMS Care Summary [place], [place]/[facility] Incident [id number] @ 08/02/2021 12:38 Incident Location [address] Patient DELGADO BIGGS Female, 66 Years 1955 Patient Address [address] [place] [address] Patient History Chronic Obstructive Pulmonary Disease (COPD),Hypertension (HTN),Morbid Obesity,Edema,Chronic Kidney Disease,Type 2 Diabetes,Cellulitis,Methicillin-resistant Staphylococcus aureus (MRSA), Patient Allergies Sulfa,Shrimp allergy,Amoxicillin, Patient Medications Acetaminophen, Aripiprazole, Amlodipine, ASA, Torsemide, Protonix, Gabapentin, Chief Complaint Weakness w/fever Disposition Transported No Lights/[place] Dispatch Reason Breathing Problem Transported To [facility] Narrative Called for SOB. Upon arrival, pt was awake and c/o not feeling well. NH staff [address] [address] EMS Patient Care Report Name: DELGADO BIGGS Room #: 243-P [facility] IN [facility].#: [id number] Admission: 08/02/21 Attend Phys: Shoshana Zambrano MD Discharge: Date of : 57 Report #: [id number] reported pt c/o being a little SOB and did not appear to be as socially active as normal. They requested transport to [facility] ER for further eval & tx. Pt moved to a joe-furniture servicer, lifted over to the EMS cot and into the ambulance w/o incident. Vitals obtained. En route: we just went across the street. RR to the ER. Arrived: pt taken to the ER, pt care & report to ER staff. Initial Vitals @PTAP: 88,R: 24,BP: 111/67,Pain: 0/10,GCS: 15,Glucose: 111,SpO2: 80,Revised Trauma: 12, @12:53P: 99,R: 20,BP: 117/62,Pain: 0/10,GCS: 15,Revised Trauma: 12, Assessments @12:42MENTAL:Person Oriented,Event Oriented,Place Oriented,Time Oriented,SKIN:Hot,HEENT:Eyes: Left Pupil: 3-mm,Eyes: Right Pupil: 3-mm,Head/Face: No Abnormalities,Neck/Airway: No Abnormalities,LUNG SOUNDS:General: Vomiting,ABDOMEN:General: Vomiting,PELVIS//GI:EXTREMITIES:Left Arm: No Abnormalities,Right Arm: No Abnormalities,Left Leg: No Abnormalities,Right Leg: No Abnormalities,PULSE:Radial: 2+ Normal,NEURO:No Abnormalities, Impression Generalized Weakness Procedures @12:42 ALS Assessment Response: UnchangedSucceeded @12:49 Stretcher Response: Unchanged Timeline DIAMOND CLEANER,BP: 111/67 M,PULSE: 88,RR: 24 R,SPO2: 80 Ox,ETCO2: ,B,PAIN: 0,GCS: 15, 12:36,Call Received 12:36,Dispatch Notified 12:38,Dispatched 12:38,En Route 12:41,On Scene 12:42,At Patient 12:42,ALS Assessment,Response: UnchangedSucceeded, 12:49,Stretcher,Response: Unchanged 12:53,Depart Scene 12:53,BP: 117/62 M,PULSE: 99,RR: 20 R,SPO2: Ox,ETCO2: ,BG: ,PAIN: 0,GCS: 15, 12:56,At Destination 13:08,Call Closed Disclaimer v1.1 Copyright 2020 [employer] [address] [address] EMS Patient Care Report Name: DELGADO BIGGS Room #: 243-P ADM IN [facility]#: [id number] Admission: 08/02/21 Attend Phys: Shoshana Zambrano MD Discharge: Date of : 57 Report #: [id number] This EMS Care Summary contains data elements from the applicable legal record (which may be displayed differently). It is designed to provide pertinent information for the following purposes: continuity of care, clinical quality, and state data reporting. The complete legal record is available to ED staff and administrators of the receiving hospital in [facility]'s Patient Tracker. All data is provided "as is."
[2021-08-02 13:01] VITALS: BP 131/45
[2021-08-02] MEDS ORDERED: ABILIFY20 MG PO (13:20)
[2021-08-02] MEDS ORDERED: MIRALAX119 GM PO (13:21)
[2021-08-02] MEDS ORDERED: INSULIN AS100 UNIT/2 SUBQ ×2 (13:22→13:23)
[2021-08-02] MEDS ORDERED: METOLAZONE 5 MG5 MG PO (13:23)
[2021-08-02] MEDS ORDERED: LANTUS SUBQ (13:23)
[2021-08-02] MEDS ORDERED: MICONAZOLE5 GM TOP (13:24)
[2021-08-02] MEDS ORDERED: NEURONTIN100 MG PO (13:24)
[2021-08-02 14:02] LABS: HEMATOCRIT 35.3 % (37.0-47.0); HEMOGLOBIN 11.4 gm/dL (12.0-15.0); MCH 26.7 pg (26.0-34.0); MCHC 32.3 g/dL (28.0-37.0); MCV 82.6 fL (80.0-100.0); PLATELET COUNT 252 thou/uL (150-400); RBC 4.27 mil/uL (4.20-5.00); WBC 17.8 thou/uL (4.0-11.0)
[2021-08-02 14:05] LABS: CALCIUM 8.6 mg/dL (8.5-10.1); CREATININE 2.4 mg/dL (0.6-1.0)
[2021-08-02 14:16] LABS: ALBUMIN 2.6 g/dL (3.4-5.0); DIRECT BILIRUBIN 0.1 mg/dL (<0.1-0.2); TOTAL BILIRUBIN 0.5 mg/dL (0.2-1.0); TOTAL PROTEIN 7.7 g/dL (6.4-8.2)
[2021-08-02 14:22] LABS: URINE BILIRUBIN NEGATIVE (Negative); URINE BLOOD 2+ (Negative); URINE COLOR YELLOW; URINE GLUCOSE-RANDOM* NEGATIVE (Negative); URINE KETONES NEGATIVE (Negative); URINE LEUKOCYTES-REFLEX 3+ (Negative); URINE NITRITE-REFLEX NEGATIVE (Negative); URINE PROTEIN (DIPSTICK) TRACE (Negative); URINE UROBILINOGEN 0.2 E.U./dl (0.2-1.0)
[2021-08-02 14:23] LABS: URINE CLARITY SL HAZY
[2021-08-02 14:27] LABS: ABSOLUTE NEUTROPHILS 15.8 thou/uL (1.4-8.2); ANISOCYTOSIS 1+
[2021-08-02 14:32] LABS: CASTS None Seen /LPF (None Seen); SQUAMOUS 0-3 Few /LPF (0-3)
[2021-08-02 14:33] LABS: AMORPHOUS URATES Moderate /LPF (None Seen)
--- NOTE | 2021-08-02 15:14 | EKG ---
[place] [address] [address] [place] [address] ELECTROCARDIOGRAM REPORT Name: COY BIGGSPEPE Menendez Room #: REG [facility]#: [id number] Admission: 08/02/21 Attend Phys: Discharge: Date of : 57 Report #: [id number] [facility] ED Test Date: 2021-08-02 Test Time: 13:23:07 Pat Name: DELGADO BIGGS Department: Room: Gender: F Community Engagement Leader: MONY : 1955 Requested By: Morgan Gamboa Order Number: [id number] MD: Josué Winters Measurements Intervals [place] Rate: 90 P: 96 OR: 186 QRS: 9 QRSD: 102 T: 27 QT: 367 QTc: 449 Interpretive Statements Sinus rhythm Nonspecific T abnrm, anterolateral leads Compared to ECG 05/26/2021 13:18:26 Intraventricular conduction delay no longer present T-wave abnormality no longer present Electronically Signed On 08-02-2021 15:14:20 CDT by Josué Winters [email or web address] <ELECTRONICALLY SIGNED> By: Josué Winters MD, [facility] 08/02/21 1514 D: 10/1322 22 Josué Winters MD, FACC /EPI
[2021-08-02 19:05] VITALS: BP 141/54
[2021-08-02 19:15] VITALS: BP 135/51
[2021-08-02 20:42] VITALS: BP 145/57
[2021-08-03] VITALS (8 sets, daily range): BP systolic 112–176; BP diastolic 44–95
--- NOTE | 2021-08-03 03:25 | NUR ---
PT ADMITTED TO THE UNIT WITH C/O HIGH TEMP,SEPSIS AND UTI.PT IS A/O X4.PT IS ON BEDREST AND MAX ASSIST.DRYNESS ON BLE.PT HAD TEMOP 102 AND CLAU ANDREA NOTIFIED AND TYLENOL ORDERED.PUREWICK IN PLACE.WILL CONTINUE TO MONITOR PER POC
[2021-08-03 04:53] LABS: CALCIUM 8.4 mg/dL (8.5-10.1); CREATININE 2.7 mg/dL (0.6-1.0); POTASSIUM 3.4 mmol/L (3.5-5.1)
[2021-08-03 04:55] LABS: HEMATOCRIT 34.6 % (37.0-47.0); HEMOGLOBIN 11.3 gm/dL (12.0-15.0); MCH 27.3 pg (26.0-34.0); MCHC 32.8 g/dL (28.0-37.0); MCV 83.3 fL (80.0-100.0); RBC 4.15 mil/uL (4.20-5.00); RDW 23.7 % (10.5-14.5); WBC 14.1 thou/uL (4.0-11.0)
[2021-08-03 05:35] LABS: BE(vivo) 11.7 mmol/L (-2 to +3); HCO3 37.1 mmol/L (22.0-26.0); PO2 135.7 mmHg (80.0-100.0); pH 7.471 (7.360-7.450); sO2 98.8 % (92.0-98.0)
--- NOTE | 2021-08-03 07:02 | NUR ---
treating plant operator called for decreased loc and elevated temp. see treating plant operator flowsheet.
--- NOTE | 2021-08-03 08:11 | NUR ---
pt transfered down from 4 w after rapid response. pt admitted from [facility] via ed for sepsis and uti possible covid. pt drowsy. iv to lh infusing ns per gravity on arrival 1000 cc's infused. new bag started at 126cc's via pump rochephin 2 gm's given as ordered, and vancomycin infusing into a new 22 g that was started in lvf at 12cc's. report from Marti burning supervisor when brought from ct. pt alerts to voice but drowsy and returns to sleep after. telemetry applied.
--- NOTE | 2021-08-03 11:17 | NUR ---
A RIGHT #6F TRIPLE LUMEN CENTRAL LINE WAS PLACED PER HOSPITAL POLICY AFTER OBTAINING CONSENT FROM HER DPOA AND ANSWERING QUESTIONS. THE PATIENT IS NON RESPONSIVE. + BLOOD CULTURES NOTED. THIS PATIENT IS SEPTIC AND NEEDS ACCESS FOR ABX, UNABLE TO OBTAIN PIV ACCESS. THE 25CM LINE WAS ADVANCED TO 7CM EXTERNAL AND A STAT CHEST XRAY WAS ORDERED FOR CONFIRMATION
--- NOTE | 2021-08-03 15:59 | NUR ---
[place] [address],PT TRANSFERED FROM FOR FEVER , SEPSIS AND R/O COVID TODAY, PT IS DROWSY AND PT CAN OPEN EYES TO ANSWER SOME QUESTIONS , PT CAN FOLLOW SOME COMMANDS, PT IS CONTINUING IV FLUID AND IV ABX, PT IS ON ROOM AIR, PT'S VS AND O2SAT ARE STABLE, PT HAS NEW RAGLAND CATHETER AND NEW R IJ CENTRAL LINE TODAY, RN HAS UPDATED PT'S INFORMATION TO FAMILY. PT DOES NOT HAVE SOB AND FEVER BY THIS TIME.
[2021-08-04 03:15] VITALS: BP 124/68
[2021-08-04 05:25] LABS: HEMATOCRIT 31.1 % (37.0-47.0); HEMOGLOBIN 9.8 gm/dL (12.0-15.0); MCH 26.7 pg (26.0-34.0); MCHC 31.7 g/dL (28.0-37.0); MCV 84.4 fL (80.0-100.0); RBC 3.68 mil/uL (4.20-5.00); RDW 23.8 % (10.5-14.5)
--- NOTE | 2021-08-04 05:41 | NUR ---
NEEDS TURNING AND REPOSTIONING. CONTINUES TO HAVE FEVERS. TYLENOL SUPP USED FOR TEMPERATURE CONTROL. SHE HAS BEEN FEBRILE THROUGH THE NIGHT. CONTINUES ON IV FLUIDS AND ANTIBIOTICS.
[2021-08-04 05:44] LABS: CALCIUM 7.8 mg/dL (8.5-10.1); POTASSIUM 3.7 mmol/L (3.5-5.1)
[2021-08-04 07:15] VITALS: BP 126/51
--- NOTE | 2021-08-04 11:23 | HC ---
[facility] [place] [address] [place] [address] CONSULTATION Name: DELGADO BIGGS Room #: 353-P ADM IN M.R.#: [id number] Admission: 08/02/21 Attend Phys: Shoshana Zambrano MD Discharge: Date of : 57 Report #: [id number] THIS REPORT FOR: cc: Micah Fonseca MD, Christopher B. MD Barry, Joseph W. MD ~ DATE OF SERVICE: 08/03/2021 INFECTIOUS DISEASE CONSULTATION ATTENDING PHYSICIAN: Dr. Zambrano. REASON FOR EVALUATION: Gram-negative septicemia, likely a complicated urinary tract origin. HISTORY OF PRESENT SUBJECTIVE: Chart reviewed. The patient examined. This is a 66-year-old woman with extensive medical history including diabetes mellitus, has been complicated by vasculopathy, previous left great toe amputation, also has a cardiomyopathy with congestive heart failure, depression, anxiety, chronic renal insufficiency, who was in a facility, apparently had complained about progressive dyspnea, was found to have saturations in the low 80s, also noted a cough. She was evaluated initially, coronavirus testing was negative, however, urinalysis showed moderate pyuria. Blood cultures now with growth of gram-negative rods. Urine culture with growth of Proteus mirabilis. She has depressed responsiveness. On questioning, she does admit to some fevers as high as 103, earlier associated nausea with anorexia and poor p.o. intake. It is not clear if she had significant lower abdominal complaints. She is maintained on supplemental oxygen 2 L per nasal cannula and empirically started on therapy with ceftriaxone and vancomycin. ALLERGIES: AUGMENTIN. CURRENT MEDICATIONS: Include the vancomycin, Alteplase, ceftriaxone, acetaminophen, enoxaparin, insulin lispro. PAST MEDICAL HISTORY: As described above, diabetes mellitus, vasculopathy, chronic renal insufficiency, cardiomyopathy, congestive heart failure, peripheral neuropathy, hyperlipidemia, hypertension, myasthenia gravis, depression, pulmonary hypertension, reflux. SOCIAL HISTORY: No illicit drug use. No ethanol. Apparently has vaped. FAMILY HISTORY: Noncontributory. REVIEW OF SYSTEMS: Otherwise unremarkable and somewhat limited due to encephalopathy. [facility] [address] [place] [address] CONSULTATION Name: DELGADO BIGGS Shon Room #: 353-P [facility] IN [facility]#: [id number] Admission: 08/02/21 Attend Phys: Shoshana Zambrano MD Discharge: Date of : 57 Report #: [id number] PHYSICAL EXAMINATION: GENERAL: She appears chronically ill. She is awake. Speech is somewhat halting. VITAL SIGNS: Temperature 98.2, T-max 101.3, symptom of a temperature-pulse dissociation. Pulse 72, respirations 18, blood pressure 123/46. SKIN: Warm, dry, no rashes. HEENT: Nasal cannula in place. Normocephalic. Extraocular muscles intact. NECK: Supple. LUNGS: Diminished breath sounds bilaterally. HEART: Regular. There is a soft systolic murmur ____ appreciate a murmur. ABDOMEN: Mildly distended, somewhat firm. No peritoneal signs. GENITOURINARY AND RECTAL: Deferred. LABORATORY DATA: Followup chest x-ray: Showed mild bilateral airspace opacity, question of hypoinflation, no focal infiltrates. Urine culture with growth of Proteus. CT of the head, no evidence of acute process. Lactic acid 1.2, most recently. Blood cultures 2/2 with gram-negative rods. ABGs: pH 7.471, pCO2 of 52, pO2 of 135.7 on 10 liters. CBC: White count of 14.1, H and H of 11.3 and 34.6, platelets of 241. Electrolytes: Sodium 142, potassium 3.4, chloride 102, bicarbonate is 31, anion gap of 9, BUN and creatinine 61 and 2.7, glucose of 254. Abdominal ultrasound, tiny gallstones, no signs of cholecystitis. CT abdomen and pelvis again shows gallstones without evidence of cholecystitis and multifibroid uterus. Urinalysis, 16-25 white cells, 10-30 bacteria. Coronavirus testing negative. Follow up PCR testing is pending. ASSESSMENT AND PLAN: Proteus septicemia, likely a complicated genitourinary tract source. She remains quite tenuous at this point. She has significant underlying disease burden. We will continue empiric therapy for now, will be able to back off I think on the vancomycin. Somewhat limited antibiotic options given her renal failure. At this point, temperature has come down, presumably responsive to the ceftriaxone. If would worsen, we could adjust therapy. She remains at risk for additional complications. Continue supportive care with oxygen therapy as needed. <ELECTRONICALLY SIGNED> By: Galdino Curtis MD 08/04/21 1123 1025 1510 Galdino Curtis MD /nt
[2021-08-04 11:31] VITALS: BP 143/50
[2021-08-04 15:47] VITALS: BP 111/57
--- NOTE | 2021-08-04 17:04 | NUR ---
assumed care of pt at 0700. more alert today. complains of nausea. febrile overnight and today. bowel movement after mag citrate. nephew socializing at bedside. complains of headache - good relief with analgesics. tylenol given prn. blood sugars treated with sliding scale. calls out appropriately. wcm.
[2021-08-04 19:36] VITALS: BP 150/53
--- NOTE | 2021-08-05 04:35 | NUR ---
continues on 3 liters. she had some abdominal pain, gave iv morphine for the discomfort. she is relaxed and resting at this time. she did have a small amount of emesis after taking some water. emesis contained undigested food. metocloprmide given with effective control of nausea and vomiting.
[2021-08-05 04:54] VITALS: BP 121/61
[2021-08-05 07:14] VITALS: BP 105/65
[2021-08-05 09:21] LABS: HEMATOCRIT 34.1 % (37.0-47.0); HEMOGLOBIN 10.7 gm/dL (12.0-15.0); MCH 26.9 pg (26.0-34.0); MCHC 31.4 g/dL (28.0-37.0); MCV 85.7 fL (80.0-100.0); RBC 3.98 mil/uL (4.20-5.00); RDW 25.2 % (10.5-14.5); WBC 10.3 thou/uL (4.0-11.0)
[2021-08-05 09:33] LABS: CALCIUM 8.3 mg/dL (8.5-10.1); CREATININE 3.5 mg/dL (0.6-1.0); POTASSIUM 4.4 mmol/L (3.5-5.1)
[2021-08-05 11:26] VITALS: BP 141/72
--- NOTE | 2021-08-05 13:30 | NUR ---
INITIAL ASSESSMENT: FABIÁN reviewed chart and spoke with nursing and attending physician. Pt was admitted from [facility] due to sepsis/UTI. Pt febrile today and is on 2L of O2. Pt is on IV abx and IV lasix. Pt may be ready to discharge back to [facility] over the weekend. FABIÁN spoke with pt's cousin, Kylie, via phone. Introduced role of FABIÁN. Pt has lived at [facility] for several months. Pt was there initially for skilled rehab and then transitioned to LTC. Pt is non-ambulatory and requires assistance with ADLs. FABIÁN discussed discharge timeframe with Kylie, who is agreeable and confirms plan is for pt to return to [facility] when medically stable. FABIÁN faxed clinical/therapy info to [facility] for review. Notified Jimmy in admissions of clinical info. Requested SNF auth be submitted. FABIÁN is following to assist as needed with discharge planning.
[2021-08-05 15:05] VITALS: BP 112/66
--- NOTE | 2021-08-05 16:08 | HC ---
[facility] [place] [address] CONSULTATION Name: DELGADO BIGGS Room #: 357-P ADM IN M.R.#: [id number] Admission: 08/02/21 Attend Phys: Shoshana Zambrano MD Discharge: Date of : 57 Report #: [id number] THIS REPORT FOR: cc: Micah Fonseca MD, Christopher B. MD Althoff, Jeffrey R. MD ~ DATE OF SERVICE: 08/03/2021 CHIEF COMPLAINT: Bilateral lower extremity ulcerations. HISTORY OF PRESENT ILLNESS: This is a 66-year-old female patient with whom I am familiar from previous hospitalization. She lives at [facility]. She has a history of lower extremity lymphedema and I have followed her for lower extremity ulcerations. She was admitted with abdominal pain and I was asked to see her for followup of her ongoing lower extremity lymphedema. PAST MEDICAL HISTORY: Positive for history of altered mental status, fluid retention, hyperlipidemia, diverticulosis, depression, pulmonary hypertension, gastroesophageal reflux disease, hyperlipidemia, myasthenia gravis. SOCIAL HISTORY: Negative for alcohol or tobacco use. She lives in an extended care nursing facility. MEDICATIONS: Include Norvasc, vitamin C, aspirin, Imuran, bupropion, Flexeril, hydralazine, Lidoderm, Edith, Protonix, physostigmine, Abilify, Lantus, metolazone, fluticasone. ALLERGIES: CLAVULANIC ACID AND AMOXICILLIN. FAMILY HISTORY: Noncontributory. REVIEW OF SYSTEMS: Not obtainable. The patient is very somnolent and difficult to arouse, does not answer questions. PHYSICAL EXAMINATION: VITAL SIGNS: Include temperature 36.7, pulse 85, respiration 18, blood pressure 131/46. GENERAL: This is a chronically ill-appearing female patient who appears to be mostly somnolent. HEENT: Normocephalic. Nose is clear. NECK: Nontender. LUNGS: Diminished. HEART: Regular, without murmur. ABDOMEN: Soft. EXTREMITIES: Lower extremities demonstrate 2+ edema. She has some very mild stasis dermatitis, mild skin changes consistent with lymphedema, but did not [facility] [address] [place] [address] CONSULTATION Name: DELGADO BIGGS Room #: 357-P [facility] IN [facility]#: [id number] Admission: 08/02/21 Attend Phys: Shoshana Zambrano MD Discharge: Date of : 57 Report #: [id number] find any open ulceration at this time. NEUROLOGIC: The patient is very somnolent, a little bit difficult to arouse. LABORATORY STUDIES: Include sodium 143, potassium 3.4, chloride 102, CO2 of 31, BUN 61, creatinine 2.7, glucose 254. White blood cell count 14.1 with a hemoglobin of 13.1, hematocrit of 34.6. CLINICAL IMPRESSION: 1. Bilateral lower extremity lymphedema. 2. History of venous stasis dermatitis with bilateral lower extremities. 3. Gram-negative sepsis. 4. Acute hypoxic respiratory failure. 5. Acute kidney injury on chronic kidney disease. 6. Morbid obesity. 7. Diabetes. 8. Hypertension. RECOMMENDATIONS: At this point in time, we will recommend AmLactin lotion to the lower extremities with use of Tubigrip stockings bilaterally. Elevation of her legs would be appropriate and PRAFO boots for pressure prophylaxis of her heels while she is in bed. At this point in time, I do not think she will require much in the way of wound care. I do appreciate being asked to see her in consultation. <ELECTRONICALLY SIGNED> By: Jarvis Hudson MD 08/05/21 1608 1655 0038 Jarvis Hudson MD /nt
--- NOTE | 2021-08-05 17:35 | NUR ---
ASSUMED PATIENT CARE AT 0700. A/0 X3. NO N/V. GENERLIZED EDEMA. ABD FRIM. KUB SHOW SMALL BOWEL OBSTRUCTION. NPO NOW. RECHECK KUB. PATIENT HAS 100ML URINE OUT PUT ON THIS SHFIT. NOT TOWARDS POC GOALS.
[2021-08-05 19:16] VITALS: BP 129/66
[2021-08-06 04:00] VITALS: BP 136/75
[2021-08-06 05:41] LABS: CALCIUM 8.3 mg/dL (8.5-10.1)
[2021-08-06 05:44] LABS: CREATININE 5.4 mg/dL (0.6-1.0)
--- NOTE | 2021-08-06 06:43 | NUR ---
PROGRESS PT A/O X3 TO 4. LOOKS SICK, HAD A LOW GRADE TEMP AND TYLENOL SUPPOSITORY GIVEN WITH SLIGHT EFFECT. GENERALIZED EDEMA NOTED. ABDOMEN DISTENDED AND FIRM NO ACTIVE BS NOTED REPORTED NAUSEA AND ZOFRAN GIVEN WITH NO EFFECT, REGLAN GIVEN A LITTLE LATER AWAITING EFFECT, ALSO C/O REFLUX AND HEARTBURN. DR. BENITEZ NOTIFIED OF LOW URINE OUTPUT STATED HE WILL BE IN IN HALF HOUR AND WILL DECIDED WHAT TO DO.
[2021-08-06 07:23] VITALS: BP 134/60
[2021-08-06 10:11] LABS: URINE BILIRUBIN 1+ (Negative); URINE BLOOD 2+ (Negative); URINE CLARITY CLEAR; URINE GLUCOSE-RANDOM* NEGATIVE (Negative); URINE KETONES 1+ (Negative); URINE LEUKOCYTES 1+ (Negative); URINE NITRITE NEGATIVE (Negative); URINE PROTEIN (DIPSTICK) 2+ (Negative); URINE SPECIFIC GRAVITY >= 1.030 (1.005-1.035); URINE UROBILINOGEN 0.2 E.U./dl (0.2-1.0)
[2021-08-06 10:29] LABS: ICTOTEST (BILI CONFIRMATORY) Positive (Negative); URINE COLOR DK YELLOW
[2021-08-06 10:31] LABS: CASTS None Seen /LPF (None Seen); MUCUS 0-3 Light strn/LPF (None Seen); SQUAMOUS 0-3 Few /LPF (0-3)
[2021-08-06 10:32] LABS: BACTERIA 1-9 Few /HPF (None Seen); CRYSTALS None Seen /LPF (None Seen); URINE RBC 1-2 Rare /HPF (NONE SEEN); URINE WBC 6-15 Few /HPF (NONE SEEN)
[2021-08-06 10:36] LABS: PROT/CREAT RATIO 0.8; URINE CREATININE-RANDOM* 272.5 mg/dL; URINE PROTEIN-RANDOM* 208.7 mg/dL (<11.9)
[2021-08-06 11:26] LABS: BE(vivo) -2.9 mmol/L (-2 to +3); HCO3 21.6 mmol/L (22.0-26.0); PCO2 36.8 mmHg (35.0-45.0); PO2 81.2 mmHg (80.0-100.0); pH 7.387 (7.360-7.450); sO2 95.9 % (92.0-98.0)
--- NOTE | 2021-08-06 12:17 | NUR ---
FABIÁN received call from pt's niece, Kylie, requesting an update, as she was told pt may need dialysis. FABIÁN reviewed chart and spoke with nursing and attending physician. Pt has had minimal urine output. Pt is currently NPO due to possible SBO. FABIÁN provided brief clinical update and offered to provide the hospitalist office number for her to speak with attending physician. She requested SW proivde the physician with her contact info. FABIÁN provided her info and requested to call her for an update. FABIÁN provided update to Emily in admissions at [facility] and requested DPOA ppwk to be sent to FABIÁN if they have it on file. FABIÁN updated pt's nurse. No weekend discharge planned. FABIÁN is following to assist as needed with discharge planning.
[2021-08-06 16:09] VITALS: BP 126/79
--- NOTE | 2021-08-06 17:57 | NUR ---
ASSUMED PATIENT CARE AT 0700. A/O X3. LETHARGIC. GENERLIZED EDEMA. ABD DISTENDED. PATIENT HAD 1400ML URINE OUTPUT AFTER LASIX. HAD LEFT TEMPORARY DIALYSIS CATH. VSS. ON 6L/NC. NOT TOWARDS POC GOALS.
[2021-08-06 19:37] VITALS: BP 173/68
[2021-08-07 00:10] VITALS: BP 147/56
[2021-08-07 03:20] VITALS: BP 158/61
[2021-08-07 05:23] LABS: HEMATOCRIT 30.3 % (37.0-47.0); HEMOGLOBIN 10.1 gm/dL (12.0-15.0); MCH 27.7 pg (26.0-34.0); MCHC 33.3 g/dL (28.0-37.0); MCV 83.1 fL (80.0-100.0); RBC 3.64 mil/uL (4.20-5.00); RDW 24.2 % (10.5-14.5); WBC 15.2 thou/uL (4.0-11.0)
[2021-08-07 05:45] LABS: CALCIUM 8.4 mg/dL (8.5-10.1); POTASSIUM 3.6 mmol/L (3.5-5.1); TOTAL BILIRUBIN 0.8 mg/dL (0.2-1.0); TOTAL PROTEIN 6.5 g/dL (6.4-8.2)
[2021-08-07 05:47] LABS: CREATININE 4.4 mg/dL (0.6-1.0)
[2021-08-07 07:12] VITALS: BP 167/58
--- NOTE | 2021-08-07 07:26 | NUR ---
PT SLOWLY PROGRESSING TOWARD GOALS. NO C/O NAUSEA OVERNIGHT. CONTINUES TO FEEL VERY WEAK. REMAINS NPO AT THIS TIME. BP ELEVATED, ZINC ETCHER NOTIFIED, RECEIVED NEW ORDERS FOR HYDRALAZINE IV PRN WHICH WAS ADMINISTERED X1 AND WAS EFFECTIVE. PT ON ANNITA MATTRESS AND REPOSITIONED AT ROUINE INTERVALS. GOOD URINARY OUTPUT. WILL CONTINUE TO OBSERVE AND MONIOR
[2021-08-07 11:27] VITALS: BP 158/70
[2021-08-07 15:07] VITALS: BP 156/71
--- NOTE | 2021-08-07 19:04 | NUR ---
ASSESSMENT CHARTED. PT ALERT AND ORIENTED. PLEASANT AND COOPERATIVE WITH CARES. FAMILY AT THE BEDSIDE. UPDATED ON PT'S PLAN OF CARE AND PROGRESS. PT REPORT DISCOMFORT WITH ITCHING. DR BOSE AWARE. NO CONCERNS AT THIS TIME.
[2021-08-07 19:28] VITALS: BP 153/67
[2021-08-08 04:29] LABS: CALCIUM 8.4 mg/dL (8.5-10.1); PHOSPHORUS 3.4 mg/dL (2.5-4.9)
[2021-08-08 04:30] LABS: CREATININE 3.2 mg/dL (0.6-1.0)
[2021-08-08 04:49] VITALS: BP 159/67
--- NOTE | 2021-08-08 06:36 | NUR ---
PT MAKING SLOW PROGRESS TOWARD GOALS. CONTINUES TO BE DIURESED WITH IV LASIX WITH GOOD URINARY OUTPUT. PT HAD PREVIOUSLY BEEN CONSTIPATED BUT HAD A LARGE LOOSE BM THIS SHIFT. PT WAS REPOSITIONED AT ROUTINE INTERVALS AND HAS NO SKIN BREAKDOWN NOTED. PT'S O2 SATS HAVE IMPROVED, AND SHE HAS BEEN TITRATED DOWN TO 3L PER NC, MAINTAINING SATS ABOVE 96%.
[2021-08-08 07:33] VITALS: BP 152/51
--- NOTE | 2021-08-08 14:49 | NUR ---
PT ALERT AND ORIENTED TIMES FOUR. VSS. IVF INFUSING PER ORDER. RAGLAND TO DD. PT TOLERATES MEDS AND CLEAR LIQUID DIET. PT SLOWLY PROGRESSING TOWRADS POC GOALS.
[2021-08-08 15:47] VITALS: BP 152/66
[2021-08-08 19:48] VITALS: BP 125/50
[2021-08-09 04:44] LABS: ALBUMIN 2.1 g/dL (3.4-5.0); CALCIUM 8.3 mg/dL (8.5-10.1); CREATININE 2.2 mg/dL (0.6-1.0); PHOSPHORUS 2.9 mg/dL (2.5-4.9)
[2021-08-09 04:47] LABS: HEMATOCRIT 31.8 % (37.0-47.0); HEMOGLOBIN 10.3 gm/dL (12.0-15.0); MCH 26.7 pg (26.0-34.0); MCHC 32.3 g/dL (28.0-37.0); MCV 82.8 fL (80.0-100.0); RBC 3.84 mil/uL (4.20-5.00); RDW 24.7 % (10.5-14.5); WBC 15.5 thou/uL (4.0-11.0)
[2021-08-09 06:12] VITALS: BP 149/54
--- NOTE | 2021-08-09 06:16 | NUR ---
PT ALERT AND ORIENTED X 4. CURRENTLY ON 2L O2 NC AND SATS WERE 95-96%. PT HAD NO C/O OF PAIN OVERNIGHT. PT'S POTASSIUM LEVEL THIS MORNING WAS 3.0, STARTED PATIENT ON IV POTASSIUM. WILL NOTIFY DAY RN. WILL CONTINUE TO MONITOR.
[2021-08-09 07:30] VITALS: BP 145/61
[2021-08-09 15:00] VITALS: BP 154/61
--- NOTE | 2021-08-09 15:03 | NUR ---
A/O X4. VSS. PROGRESSING TOWARDS POC GOALS. TRAMSFER TO 454 NOW.
--- NOTE | 2021-08-09 15:28 | NUR ---
FABIÁN reviewed chart and spoke with nursing and attending physician. Pt is progressing towards goals for discharge. Pt is on 2L of O2. Pt is on IV abx and IV lasix. Pt had temporary dialysis catheter placed last week. No plan for dialysis at this time. Pt may have temporary dialysis catheter removed prior to discharge. Discharge back to [facility] is anticipated for tomorrow. FABIÁN faxed updated clinical and therapy notes to [facility] for review. Requested auth to be submitted today. FABIÁN notified that insurance is requesting a peer to peer to be completed by tomorrow, Monday, 08/10 at 1000. option 5. This information provided to attending physician. FABIÁN spoke with pt's cousin, Kylie, via phone to provide update and notify of anticipated discharge plan. Kylie is agreeable with plan. Pt transferred to 4W this afternoon. FABIÁN updated 4W SW. Plan is for pt to discharge back to [facility] when medically stable. FABIÁN is following to assist as needed with discharge planning.
--- NOTE | 2021-08-09 16:28 | NUR ---
Patient transfer from 3 to room 454. Right IJ TLC, L IJ temporary dialysis catheter, abdi catheter. Patient AOX4, no complaints at this time.
[2021-08-09 19:38] VITALS: BP 142/58
[2021-08-10 04:09] VITALS: BP 124/48
--- NOTE | 2021-08-10 05:29 | NUR ---
patient aox4 makes needs known. patient turned q 2 hours.patient had several bowel movement this shift. patient incontient of bowel pericare and barrier cream applied. cath care done. patient has edema on ble patient encouraged to elevate bue.patient has boots on ble.patient on full liquid and tolerated well. .pain controlled this shift. patient in bed asleep at this time breathing regular and unlaboured.
[2021-08-10 06:28] LABS: ALBUMIN 1.9 g/dL (3.4-5.0); CREATININE 1.6 mg/dL (0.6-1.0); PHOSPHORUS 3.1 mg/dL (2.5-4.9)
[2021-08-10 08:20] VITALS: BP 147/57
--- NOTE | 2021-08-10 14:30 | NUR ---
NUMBER WE HAD BEEN GIVEN FOR PEER TO PEER WASN'T CORRECT. PT TRIED TWICE BUT IT WASN'T CALLED BY 10:00 THIS AM. HOSPITALIST INDICATED THAT SHE WAS CONSULTING NEURO TO SEE PT AND ANTICIPATES THAT PT MAY BE MEDICALLY STABLE TO DC BACK TO [facility] WITH PART B THERAPY IN 24-48 HRS. CM UPDATED FACILITY. CM FOLLOWING REGARDING DC PLANNING.
--- NOTE | 2021-08-10 19:35 | NUR ---
Assumed pt care this am vs stable. Pt is bed bound and is dependent on all adl's exept meals. 3 bouts of lbm noted, MD informed. Q2 turns done when allowed. Fc in place draining yellow urine. Blood sugar monitored, medications given as per emar. Heel protectors on al all times. +3 edema , generalized. Maintained on 2 liters of O2 via nc. POC followed, pt is non ambulatory. Endorsed to the night nurse.
--- NOTE | 2021-08-11 02:59 | NUR ---
PT CARE ASSUMED WITH PT IN BED WATCHING TV.PT IS A/O X3.PT IS ON BEDREST AND MAX ASSIST.PT IS ACCUCHECK ACHS WITH LOW SSI.PT IS ON 2L OF O2 VIA NC.PT HAVING DIARRHEA X2 TO HIS MOMENT.Q2H TURN.IV ACCESS RT IJ TRIPPLE LUMEN .WILL CONTINUE TO MONITOR PER POC
[2021-08-11 05:27] VITALS: BP 153/57
[2021-08-11 06:48] LABS: ALBUMIN 2.1 g/dL (3.4-5.0); CALCIUM 8.4 mg/dL (8.5-10.1); CREATININE 1.5 mg/dL (0.6-1.0); DIRECT BILIRUBIN 0.2 mg/dL (<0.1-0.2); PHOSPHORUS 4.5 mg/dL (2.5-4.9); POTASSIUM 4.5 mmol/L (3.5-5.1); TOTAL BILIRUBIN 0.6 mg/dL (0.2-1.0); TOTAL PROTEIN 7.1 g/dL (6.4-8.2)
[2021-08-11 07:00] VITALS: BP 154/58
--- NOTE | 2021-08-11 08:17 | HC ---
[facility] [place] [address] CONSULTATION Name: DELGADO BIGGS Room #: 454-P ADM IN M.R.#: [id number] Admission: 08/02/21 Attend Phys: Shoshana Zambrano MD Discharge: Date of : 57 Report #: [id number] THIS REPORT FOR: cc: Micah Fonseca MD, Christopher B. MD McElhinney, Christian C. MD ~ cc: Shoshana Zambrano MD, Galdino Curtis MD DATE OF SERVICE: 08/10/2021 HISTORY OF PRESENT ILLNESS: The patient is a 66-year-old female who was admitted on 08/02/2021 with shortness of breath. Sats were in the low 80s. The patient also with recent cough. Since admission, she has been diagnosed with a Proteus septicemia because of a complicated urinary tract infection, also diagnosed with pneumonitis. She is currently on IV antibiotics. She denies any abdominal pain, but began having diarrhea over the last 2 days. She denies any obvious blood in her stools. She underwent a CT scan of the abdomen and pelvis on the , which showed gallstones without signs of cholecystitis, large multifibroid uterus was noted, otherwise negative. Most recent KUB showing mild ileus, slightly improved to compare study. She denies any previous history of upper endoscopy or colonoscopy. She does complain of heartburn and burning, at home, she was taking Tums. She states she has taken Nexium in the past, but unsure when the last time she was on this medication. They have started probiotics and Imodium on the patient. She currently denies any shortness of breath. No nausea or vomiting at this time, although she did report some nausea several days ago. PAST MEDICAL HISTORY: Coronary artery disease, hypertension, diabetes, peripheral vascular disease, history of myasthenia gravis, renal insufficiency, history of urinary tract infection, hyperlipidemia, diverticulosis, gastroesophageal reflux disease. She has had a left toe amputation, toes on the right foot also amputated, history of neuropathy. PAST MEDICAL HISTORY: As per HPI. FAMILY HISTORY: Negative for colon cancer. SOCIAL HISTORY: She denies any tobacco or alcohol use. ALLERGIES: AMOXICILLIN AND AUGMENTIN. PHYSICAL EXAMINATION: VITAL SIGNS: Temperature is 37.1, pulse 74, blood pressure 147/57, respiratory rate is 18. GENERAL: She is alert and oriented x3, in no acute distress. HEENT: Sclerae nonicteric. Oropharynx clear. [address] [address] CONSULTATION Name: DELGADO BIGGS Room #: 454-[facility] IN ..#: [id number] Admission: 08/02/21 Attend Phys: Shoshana Zambrano MD Discharge: Date of : 57 Report #: [id number] NECK: Supple, without lymphadenopathy. CARDIOVASCULAR: Regular rate. CHEST: Clear to auscultation anteriorly bilaterally. ABDOMEN: Obese, soft, nontender, nondistended. Normoactive bowel sounds. EXTREMITIES: Trace edema of the lower extremities bilaterally. LABORATORY DATA: WBC is 15.5, hemoglobin 10.3, platelet count 234. Sodium 142, potassium 4.0, chloride 100, bicarbonate 28, BUN 55, creatinine 1.6, glucose 254. Calcium 8.0, total bilirubin 0.8, AST 1299, ALT is 829, alkaline phosphatase 149, lipase 67. INR 1.30. CT scan on 08/02 showing gallstones without signs of cholecystitis. ASSESSMENT AND PLAN: 1. Diarrhea. The patient reports this has been ongoing for the last 1-2 days. Etiology is unclear at this point. She has been on several antibiotics, which could obviously be causing diarrhea, may need to consider checking for C. diff if this continues. Agree with probiotics and Imodium currently. 2. Gastroesophageal reflux disease. The patient is reporting heartburn symptoms. We will start daily PPI therapy. She was taking Tums at home. 3. Elevated liver function tests. Etiology is unclear. She does have cholecystolithiasis on recent CT scan; however, her bilirubin is normal and the AST and ALT pattern is more suggestive of hepatocellular elevation. There was a rise in her liver function tests on the . We will repeat tomorrow to see how these are trending. May need to consider further liver lab workup at that point. We will continue to follow. Thank you for allowing me to participate in her care. <ELECTRONICALLY SIGNED> By: William Chavez MD 08/11/21 0817 [id number] William Chavez MD /nt
--- NOTE | 2021-08-11 10:09 | HC ---
[place] [address] CONSULTATION Name: DELGADO BIGGS Room #: 454-P ADM IN M.R.#: [id number] Admission: 08/02/21 Attend Phys: Shoshana Zambrano MD Discharge: Date of : 57 Report #: [id number] THIS REPORT FOR: cc: Micah Fonseca MD, Christopher B. MD Khosla, Parveen K. MD ~ DATE OF SERVICE: 08/10/2021 HISTORY OF PRESENT ILLNESS: This 66-year-old female patient was evaluated by me for myasthenia gravis. This patient has a complicated history. She was followed by a booking prizer of Neurology for myasthenia gravis for the last 20 years. She said she was diagnosed with neuropathy, which was attributed to her diabetes somewhere between 20-25 years ago. Then, she went to Dr. Torres, and they did the further testing and they found out that she also has myasthenia gravis. At that time, her symptoms were partly attributed to neuropathy. She had some ptosis. She has some double vision. She was started on Mestinon and steroid. Steroid was tapered off over a period of time and it does not look like she went on any immune suppressing treatment at that time. When I asked her whether she had MuSK myasthenia gravis or general myasthenia gravis, she did not know. She said she developed some foot infection, she was admitted to [facility]. She was apparently lived there for 3-4 months. During that time, she became very weak in the legs and she was unable to move her legs much. She went to a residential. What workup they did at [facility] is not clear. Review of the notes here indicates that she came here for shortness of breath. She has a known history of diabetes, hypertension, congestive heart failure, peripheral vascular disease, coronary artery disease, hyperlipidemia, depression, and kidney disease. She did have a toe removed. She has a history of myasthenia gravis. She has a history of pulmonary hypertension. A record indicates that she is also on multiple other medications like Wellbutrin for depression and she also is on Imuran, which I suspect is because of her myasthenia gravis. She is also on pyridostigmine. She takes some medicine for glaucoma. She has been seen by multiple consultants and those records were reviewed and it looks like she has a Proteus septicemia. She is complaining of spasms in the arms and that is going on from the last few days. She also has renal failure, which is chronic and has become worse. She was admitted with a pretty high creatinine and looks like it is becoming better. She is a diabetic. PAST MEDICAL HISTORY: Positive for diagnosis of myasthenia gravis as well as neuropathy. FAMILY HISTORY: Unremarkable. SOCIAL HISTORY: Presently, she is living in a residential. She said she went there recently, and she denies the use of alcohol or tobacco. [address] [address] CONSULTATION Name: DELGADO BIGGS Shon Room #: 454-P [facility] IN M.R.#: [id number] Admission: 08/02/21 Attend Phys: Shoshana Zambrano MD Discharge: Date of : 57 Report #: [id number] PHYSICAL EXAMINATION: She is a morbidly obese lady. Her hearing and vision looks adequate and she does not have any dysmorphic features of her face. Pulses are difficult to feel, but she has a known peripheral vascular disease. She is alert. She is responsive. She can follow simple commands. She does have visual disturbances, but she says she has underlying glaucoma. She moves all 4 extremities, but she is profoundly weak in all 4 extremities. She did not move her legs much except her feet and she said she has been like that for 5 months, but she did reasonably well on the position sense. In the upper extremities, she was also pretty significantly weak, more on the left side as compared to the right side. She was also having some spasms. It does not look like she is much in respiratory difficulty. She did not have much ptosis. VITAL SIGNS: Blood pressure is 147/57, respirations 18, pulse is 74, temperature is 98.7. LABORATORY DATA: She did have a CT scan of the head which was unremarkable. IMPRESSION: Difficult to form in this patient as I do not have any prior records. She carries a diagnosis of myasthenia gravis. It will be difficult to explain all her symptoms on the basis of myasthenia gravis, especially she also has pretty significant spasms. She also has multiple other abnormalities which can cause generalized weakness including kidney failure, which is improving. Leg weakness is going on from the last 5 months. As far as myasthenia gravis is concerned, I will check her vital capacity, and if that is unremarkable, or at least more than 1.5 liters, I will just observe her. All of her weakness is not because of myasthenia gravis. The pattern of the leg weakness and arm weakness associated with spasm will be difficult to explain on the basis of myasthenia gravis either. She said there is no contraindication for MRI, so I will schedule an MRI of the cervical and thoracic spine to see if we can find some pathology there. We just need to see how much she improves with improvement in her metabolic status. More than 50 minutes of time was spent taking care of this patient today and majority was spent counseling the patient on multiple aspect of the things we will be doing and reviewing her last review of records and imaging studies here. Thank you very much for this referral. <ELECTRONICALLY SIGNED> By: Oleg Flores MD 08/11/21 1009 [id number] [id number] Oleg Flores MD /nt
[2021-08-11 12:00] VITALS: BP 176/47
--- NOTE | 2021-08-11 14:50 | NUR ---
NEURO WAS CONSULTED AND PT TO HAVE AN MRI. ANTICIPATE THAT PT WILL DC TO [facility] ONCE MEDICALLY STABLE. CM FOLLOWING REGARDING DC PLANNING.
[2021-08-11 16:00] VITALS: BP 159/69
--- NOTE | 2021-08-11 18:42 | NUR ---
Assumed pt care at 7am. Pt in bed sleeping on and off.Assessment completed.vss am meds given with meals and well tolerated.Pt has loose bm x3 [address] Zambrano here, order noted. Imodium given x1.Pt c/o heart burn.mag ox given after each meal. Complete bed change done with pericare. Will continue to monitor.
[2021-08-11 19:53] VITALS: BP 167/64
[2021-08-12 00:30] VITALS: BP 151/65
--- NOTE | 2021-08-12 02:43 | NUR ---
PT CARE ASSUMED WITH PT IN BED RESTING.PT IS A/O X4.PT IS ON BEDREST AND BEDBOUND FROM FACILITY.PT IS ACCUCHECK ACHS.PT HAS LEFT CHEST TESSIO CATH AND RT IJ TRIPPLE LUMEN SL.PT IS INCONTINENT AND HAS A RAGLAND IN PLACE.PT HAD X2 LOOSE STOOL.PT ON 2L OF O2 VIA NC.WILL CONTINUE TO MONITOR PER POC
[2021-08-12 04:27] VITALS: BP 141/43
[2021-08-12 07:15] LABS: ALBUMIN 2.1 g/dL (3.4-5.0); CALCIUM 8.2 mg/dL (8.5-10.1); CREATININE 1.4 mg/dL (0.6-1.0); DIRECT BILIRUBIN 0.2 mg/dL (<0.1-0.2); POTASSIUM 4.9 mmol/L (3.5-5.1); TOTAL BILIRUBIN 0.5 mg/dL (0.2-1.0); TOTAL PROTEIN 6.9 g/dL (6.4-8.2)
[2021-08-12 07:48] VITALS: BP 138/60
[2021-08-12 12:15] VITALS: BP 154/65
[2021-08-12 12:30] LABS: MAGNESIUM 2.9 mg/dL (1.8-2.4); PHOSPHORUS 4.2 mg/dL (2.5-4.9)
--- NOTE | 2021-08-12 15:40 | NUR ---
PT TO HAVE MRI OF BRAIN. IT IS ANTICIPATED THAT PT WILL RETURN TO [facility] ONCE MEDICALLY STABLE. CM FOLLOWING REGARDING DC PLANNING.
[2021-08-12 16:50] VITALS: BP 133/42
--- NOTE | 2021-08-12 17:47 | NUR ---
Assumed pt care this am, pt is bed bound refuses Q2 turns. blood sugars are elevated MD informed medications given as per MD, pt stated this is due to her prednisone as well. Maintained on 2 liters of O2 via NC, dialysis cat removed as per IV team. ST test done diet remains the same. PIC line in place patent and pulls for labs. 3 small small stools (liquid) noted when pts coughs. Medications given as per emar, parital relief of pain is noted. FC in place draining light yellow urine. Endorsed to the night nurse.
[2021-08-12 19:34] VITALS: BP 140/64
[2021-08-13] VITALS (35 sets, daily range): BP systolic 103–168; BP diastolic 39–90
[2021-08-13 00:06] LABS: HAV IgM AB (ANTI-HAV IgM) Negative (Negative); HEPATITIS B SURFACE AG Negative (Negative)
--- NOTE | 2021-08-13 05:48 | NUR ---
Pt transferred to ICU approx 0430 d/t insulin drip orders per . I have reviewed Clara butt assessment and I concurr with it.
[2021-08-13 06:26] LABS: ABSOLUTE NEUTROPHILS 17.4 thou/uL (1.4-8.2); BASOPHILS 0.2 % (0.0-2.0); HEMATOCRIT 30.7 % (37.0-47.0); HEMOGLOBIN 9.8 gm/dL (12.0-15.0); LYMPHOCYTES 2.5 % (24.0-44.0); MCH 26.6 pg (26.0-34.0); MCV 83.2 fL (80.0-100.0); MONOCYTES 3.8 % (1.0-8.0); PLATELET COUNT 337 thou/uL (150-400); POLYS 93.5 % (36.0-66.0); RBC 3.69 mil/uL (4.20-5.00); RDW 24.5 % (10.5-14.5); WBC 18.5 thou/uL (4.0-11.0)
[2021-08-13 07:02] LABS: ALBUMIN 2.2 g/dL (3.4-5.0); CALCIUM 8.2 mg/dL (8.5-10.1); CREATININE 1.5 mg/dL (0.6-1.0); MAGNESIUM 3.2 mg/dL (1.8-2.4); TOTAL BILIRUBIN 0.3 mg/dL (0.2-1.0); TOTAL PROTEIN 6.8 g/dL (6.4-8.2)
[2021-08-13 07:03] LABS: POTASSIUM 5.5 mmol/L (3.5-5.1)
--- NOTE | 2021-08-13 07:26 | NUR ---
PT ADMITTED TO ICU AT 0500. BLOOD SUGAR WAS 207 ON ADMISSION TO UNIT. SPECIFIC DETAILS TO DKA PROTOCOL WERE GIVE TO NURSE PER CLAU SHERIFF. NO INSULIN BOLUS, NO IV FLUIDS UNLESS BLOOD GLUCOSE LESS THAN 150, THEN INSTRUCTED TO START D5. DKA LABS HAD NOT YET RESULTED.0600 BLOOD GLUCOSE 229 AND ISULIN DRIP STARTED AT 1UNIT/HR.
[2021-08-13 08:08] LABS: CERULOPLASMIN 38.6 mg/dL (19.0-39.0)
--- NOTE | 2021-08-13 10:11 | NUR ---
DPOA PAPERWORK WAS COMPLETED AND PUT IN CHART BY THIS COOK [employer].
[2021-08-13] MEDS ORDERED: BRIMONIDINE TART5 ML OPHTHALMIC (11:33)
--- NOTE | 2021-08-13 11:56 | NUR ---
SW reviewed chart and spoke with nursing and attending physician. Pt was transferred to ICU from 4W yesterday. Pt is on insulin gtt. Spiritual care to assist pt with completing DPOA ppwk per attending physician's request. No weekend discharge planned. FABIÁN updated Emily in admissions at [facility]. Will fax clinical/therapy updates to [facility] for review on Monday. FABIÁN is following to assist as needed with discharge planning.
[2021-08-13 16:04] LABS: URINE BILIRUBIN NEGATIVE (Negative); URINE BLOOD TRACE (Negative); URINE CLARITY CLEAR; URINE COLOR YELLOW; URINE GLUCOSE-RANDOM* 2+ (Negative); URINE KETONES NEGATIVE (Negative); URINE LEUKOCYTES-REFLEX NEGATIVE (Negative); URINE NITRITE-REFLEX NEGATIVE (Negative); URINE PROTEIN (DIPSTICK) NEGATIVE (Negative); URINE UROBILINOGEN 0.2 E.U./dl (0.2-1.0)
--- NOTE | 2021-08-13 20:33 | NUR ---
PATIENT ON INSULIN GTT PER ORDERS GIVEN AND TITRATED PER PROTOCOL WITH BG GOAL 150-200. LBG ON RN DAY SHIFT 131. PATIENT DIET ADVANCED BY DR. ROGERS WITH GOOD RESULTS - PATIENT CONSUMED MAJORITY OF MEAL AND REQUIRED LITTLE ASSISTANCE WITH EATING. PATIENT INCONTINENT WITH LOOSE STOOLS; DEANNA CARE GIVEN. PATIENT NOTED TO HAVE CHAFING BETWEEN THIGHS AND AROUND DEANNA AREA AND SKIN FOLDS. CONSULTED WITH WOUND NURSE AND ORDERS FOR AN ANTIFUNGAL BARRIER CREAM GIVEN AND INTER DRY PLACED BETWEEN SKIN FOLDS. PATIENT LOWER EXTREMITY SKIN DRY AND FLAKY. PATIENT ALERT AND ORIENTED BUT WEAK AND LETHARGIC AND SLEPT MOST OF SHIFT. PATIENT IN ISOLATION.
[2021-08-14] VITALS (48 sets, daily range): BP systolic 115–160; BP diastolic 31–125
--- NOTE | 2021-08-14 00:24 | NUR ---
ASSUMED CARE OVER PATIENT AT 2232. GOT REPORT FROM EMANUEL PEARSON. CHECKED SUGAR UPON ASSESSING PATIENT AND SUGAR WAS 86. MADE ADJUSTMENT TO INSULIN DRIP. CHECKED SUGAR AGAIN AT 2300, IT WAS 71. DRIP STOPPED. HOSPITALIST CALLED AND REPORT 2300 AND 0000 SUGARS. ASSISTANT PROFESSOR OF SPANISH TOLD NURSE TO HOLD ISULIN DRIP SO SHE CAN REVIEW CHART.
[2021-08-14 01:06] LABS: GLYCOHEMOGLOBIN (HGB A1C) 9.6 % (4.8-5.6)
--- NOTE | 2021-08-14 03:32 | NUR ---
CONTACTED CLAU GARCIA ABOUT RESTARTING INSULIN DRIP AFTER DISCUSSED SHE WOULD REVIEW THE CHART. NO RESPONSE AND SUGAR WAS OVER 200 SO INSULIN DRIP RESTARTED PER INSULIN DRIP PROTOCOL.
[2021-08-14 03:59] LABS: ALBUMIN 2.2 g/dL (3.4-5.0); CREATININE 1.3 mg/dL (0.6-1.0); PHOSPHORUS 2.6 mg/dL (2.6-4.7); POTASSIUM 4.8 mmol/L (3.5-5.1)
--- NOTE | 2021-08-14 14:24 | NUR ---
REFERRAL RECEIVED FOR DR. GARCIA THIS DATE. PATIENT IS CURRENTLY IN ICU AND ALSO HAS [facility] MEDICARE FOR PAYER SOURCE AND IF APPROPRIATE FOR REHAB STAY, WILL NEED AUTHORIZATION. WILL FOLLOW UP ON MONDAY AND DR. GARCIA WILL ALSO SEE THAT DATE (08/16/21). IF APPROPRIATE FOR REHAB STAY AND MEDICALLY READY COULD REQUEST AUTHORIZATION AT THAT TIME.
[2021-08-14 19:07] LABS: MITOCHONDRIAL ANTIBODY <20.0 Units (0.0-20.0)
--- NOTE | 2021-08-14 20:13 | NUR ---
PT DISCONTINUED FROM INSULIN DRIP AND STARTED ON SUBQ INSULIN PER DR. ROGERS. PT IS ALERT, CALM, AND FOLLOWS COMMANDS. REPORT GIVEN TO RUG CUTTER HELPER NURSE.
--- NOTE | 2021-08-14 23:15 | NUR ---
asked pt about her personal insulin pump. she denies that she has an insulin pump. she stated that she has been asked that before and does not have one. she says that she has been told that it will not help her, and that she is too old for one. she did verbalize understanding of what an insulin pump is used for. i asked her once again: Do you have an insulin pump; she replied: NO
[2021-08-15] VITALS (47 sets, daily range): BP systolic 91–175; BP diastolic 18–96
[2021-08-15 06:27] LABS: ABSOLUTE NEUTROPHILS 18.5 thou/uL (1.4-8.2); BASOPHILS 0.1 % (0.0-2.0); HEMATOCRIT 30.8 % (37.0-47.0); HEMOGLOBIN 9.7 gm/dL (12.0-15.0); LYMPHOCYTES 2.3 % (24.0-44.0); MCH 26.7 pg (26.0-34.0); MCHC 31.6 g/dL (28.0-37.0); MCV 84.3 fL (80.0-100.0); MONOCYTES 4.2 % (1.0-8.0); PLATELET COUNT 354 thou/uL (150-400); POLYS 93.4 % (36.0-66.0); RBC 3.65 mil/uL (4.20-5.00); RDW 24.5 % (10.5-14.5); WBC 19.9 thou/uL (4.0-11.0)
[2021-08-15 06:47] LABS: ALBUMIN 2.2 g/dL (3.4-5.0); CALCIUM 7.7 mg/dL (8.5-10.1); CREATININE 1.2 mg/dL (0.6-1.0); PHOSPHORUS 2.9 mg/dL (2.5-4.9); POTASSIUM 4.7 mmol/L (3.5-5.1); TOTAL BILIRUBIN 0.4 mg/dL (0.2-1.0); TOTAL PROTEIN 6.5 g/dL (6.4-8.2)
[2021-08-15 10:14] LABS: ANISOCYTOSIS 3+
[2021-08-15 10:15] LABS: HYPOCHROMASIA 1+
[2021-08-16] VITALS (14 sets, daily range): BP systolic 122–176; BP diastolic 36–71
[2021-08-16 06:15] LABS: URINE BILIRUBIN NEGATIVE (Negative); URINE BLOOD TRACE (Negative); URINE CLARITY CLEAR; URINE COLOR YELLOW; URINE GLUCOSE-RANDOM* TRACE (Negative); URINE KETONES NEGATIVE (Negative); URINE LEUKOCYTES NEGATIVE (Negative); URINE NITRITE NEGATIVE (Negative); URINE PROTEIN (DIPSTICK) NEGATIVE (Negative); URINE UROBILINOGEN 0.2 E.U./dl (0.2-1.0)
--- NOTE | 2021-08-16 09:35 | NUR ---
CHILD LIFE SPECIALIST LEARNED THIS AM THAT PATIENT IS FROM [employer] AND THEREFORE IS NOT A CANDIDATE FOR ACUTE REHAB STAY. DR. GARCIA INFORMED PATIENT NOT A CANDIDATE AND DUE TO THE ABOVE WILL NOT COMPLETE CONSULT UNLESS NEW INFORMATION IS BROUGHT FORWARD. THANK YOU FOR THIS REFERRAL.
--- NOTE | 2021-08-16 10:21 | NUR ---
PT TRANSFER ORDERS GIVEN TO RN AT 0750, RN INITATED THE TRANSFER, GAVE REPORT TO THE RN YARIEL. ALL BELONGINGS TAKEN WITH THE PATIENT INCLUDING BUT NOT LIMITED TO THE CHART,PAPERWORKS PT REQUESTED,DENTURE,PHONE,BUFFING TURNER AND COUNTER,PATIENT'S GIFTS. BLOOD SUGAR BEFORE LEAVING WAS 160s, REPORTED TO RN. PATIENT COMPLAINED OF BOWEL SMELL, RN CLEANED UP THE PATIENT BEFORE LEAVING. REINFORCED THE RIJ DRESSING BEFORE GOING. RN SIGNING OFF.
--- NOTE | 2021-08-16 10:58 | NUR ---
FABIÁN reviewed chart and spoke with nursing and attending physician. Pt was transferred from ICU to 4 earlier today. [facility] FABIÁN updated Emily in admissions. Will need new therapy evals for facility to submit for insurance authorization. Pt to have MRI of the head today per neuro. Pt is on 2L of O2 and is on IV abx and IV steroids. FABIÁN is following and is available to assist as needed with discharge planning.
--- NOTE | 2021-08-16 15:19 | NUR ---
PT TRANSFERED TO 4W THIS DAY. CLINICAL UPDATE FAXED TO [facility]. MAY SEE IF SKILLED AUTH CAN BE OBTAINED PT HAD CHANGE IN CONDITION. CM FOLLOWING REGARDING DC PLANNING.
--- NOTE | 2021-08-16 18:00 | NUR ---
ASSUMED CARE OF PT AROUND 0900. PT WAS A TRANSFER FROM ICU. PT ALERT AND ORIENTED TIMES FOUR. OBIE NICOLE TO DD. PT C/O PAIN PRN PAIN MEDICATIONS CONTROLLING PAIN WELL. PT TOLERATES MEDS AND CLEAR LIQUID DIET. WILL CONTINUE TO MONITOR.
[2021-08-17] VITALS (8 sets, daily range): BP systolic 140–168; BP diastolic 47–70
--- NOTE | 2021-08-17 03:54 | NUR ---
Pt. rested quietlyl at intervals during the night when checked on during frequent rounds. She c/o pain to her left leg and po pain med given (see emar) with some relief noted. Incontinent of two large loose stools. Blood sugar elevated at HS last evening and Jennifer GERM DRIER notified (see orders).
--- NOTE | 2021-08-17 14:50 | NUR ---
CARE TEAM HAD INITIALLY INDICATED THAT PT WAS DC READY TO RETURN TO [facility] THIS DAY. PT HAD MRI OF SPINE PER NEURO AND AN XRAY THIS DAY. HOSPITALIST INDICATEFD THAT SHE HAD REORDERED THERAPY TO WORK WITH PT SHE IS NOT A 2-3 PERSON ASSIT FOR TRANSFERS AND HAD BEEN ABLE TO TRANSFER HERSELF PNP. CM UPDATED [facility]. CM FOLLOWING INDICATED WITH DC PLANNING.
--- NOTE | 2021-08-18 04:08 | NUR ---
Pt. rested quietly at intervals during the night when checked on during frequent rounds. She had two large loose stools this shift. Po pain meds given for c/o pain to her left foot (see emar) with relief noted.
[2021-08-18 04:57] VITALS: BP 153/51
[2021-08-18 05:19] LABS: HEMATOCRIT 28.5 % (37.0-47.0); HEMOGLOBIN 9.1 gm/dL (12.0-15.0); MCH 27.2 pg (26.0-34.0); MCV 84.8 fL (80.0-100.0); RBC 3.36 mil/uL (4.20-5.00); RDW 24.6 % (10.5-14.5); WBC 13.4 thou/uL (4.0-11.0)
[2021-08-18 05:50] LABS: CREATININE 1.1 mg/dL (0.6-1.0); POTASSIUM 4.5 mmol/L (3.5-5.1); TOTAL BILIRUBIN 0.5 mg/dL (0.2-1.0)
[2021-08-18 07:00] VITALS: BP 167/50
[2021-08-18] MEDS ORDERED: ACIDOPHILUS1 EAC4 PO (11:19)
[2021-08-18] MEDS ORDERED: CHOLESTYRAMINE L4 GM PO (11:19)
[2021-08-18] MEDS ORDERED: LASIX 40 MG TAB40 M1 PO (11:19)
[2021-08-18] MEDS ORDERED: LANTUS SUBQ (11:19)
[2021-08-18] MEDS ORDERED: PREDNISONE 20 M20 M1 PO (11:19)
[2021-08-18] MEDS ORDERED: AMMONIUM LACTA226 GM TOP (11:19)
[2021-08-18] MEDS ORDERED: HUMALOG100 UNIT/1 SUBQ (11:19)
[2021-08-18 11:30] VITALS: BP 170/61
--- NOTE | 2021-08-18 15:07 | NUR ---
CARE TEAM INDICATED THAT PT IS MEDICALLY STABLE TO DC BACK TO [facility] THIS DAY. PT HAD BEEN SEEN BY PT AND OT AND EVALS AND PROGRESS NOTES WERE FAXED TO FACILITY. ADMISSIONS INDICATED THAT THEY WOULD AGAIN SEEK AUTH FOR PT TO GET SKILLED REHAB UPON HER RETURN. CM CONVEYED THIS TO THE PT THEY WAS HER DESIRE. PT INDICATED SHE HOPES TO BE ABLE TO REHAB BACKTO THE HOME SETTING AND WOULD BE INTERESTED IN A [employer]IFT FOR HOME USE AND HCBS SERVICES. CM INFORMED PT THAT CM WOULD CONVEY THIS TO CARE TEAM AT [facility]. CM CALLED AND LEFT A FOR PT'S COUSIN/EDINSON NAYAK. ORDERS FAXED. CHART COPY MADE. NURSE GIVEN NUMBER FOR REPORT. [employer] [facility] ARRANGED FOR 1700. NO OTHER CM INTERVENTION INDICATED. CASE CLOSED.
[2021-08-18 16:00] VITALS: BP 159/83
--- NOTE | 2021-08-18 17:08 | NUR ---
pt A & O x4. Pt VS stable. Pt currently room air. Pt had diarrhea this shift multiple times. Pt abdi d/c'd. Pt R IJ IV d/c'd. Pt received discharge orders to facility. Report called to [facility]. Pt recieved medications as ordered. Pt awaiting transport to facility.
--- NOTE | 2021-08-18 17:36 | NUR ---
Pt transport arrived and recieved pt by stretcher. transport crew has pt paperwork and pt belongings.
== END 2021-08-18 17:53 | DRG 871 ==
LOC: ER 13:01 → 3W 15:46 → EROBS 15:46 → 4W 15:46 → 3W 08-03 06:24 → 4W 08-09 14:49 → ICU 08-13 05:27 → 4W 08-16 08:55
PROVIDERS: Hospitalist; Internal Medicine; Internal Medicine Nephrology; Nurse Practitioner; Nurse Practitioner Family; Psychiatry & Neurology Neurology; Psychiatry & Neurology Neuromuscular Medicine; Specialist; Student in an Organized Health Care Education/Training Program; ADMIT Hospitalist; ATTEND Hospitalist
DX: A41.59 Other Gram-negative sepsis (principal); J96.01 Acute respiratory failure with hypoxia; J18.9 Pneumonia, unspecified organism; I50.33 Acute on chronic diastolic (congestive) heart failure; N17.0 Acute kidney failure with tubular necrosis; E43 Unspecified severe protein-calorie malnutrition; G93.41 Metabolic encephalopathy; N39.0 Urinary tract infection, site not specified; E87.0 Hyperosmolality and hypernatremia; I42.9 Cardiomyopathy, unspecified; M31.9 Necrotizing vasculopathy, unspecified; Z16.12 Extended spectrum beta lactamase (ESBL) resistance; Z68.44 Body mass index [BMI] 60.0-69.9, adult; I13.0 Hypertensive heart and chronic kidney disease with heart failure and stage 1 through stage 4 chronic kidney disease, or unspecified chronic kidney disease; E87.6 Hypokalemia; E11.51 Type 2 diabetes mellitus with diabetic peripheral angiopathy without gangrene; E66.01 Morbid (severe) obesity due to excess calories; I27.20 Pulmonary hypertension, unspecified; I25.10 Atherosclerotic heart disease of native coronary artery without angina pectoris; E78.5 Hyperlipidemia, unspecified; K21.9 Gastro-esophageal reflux disease without esophagitis; F32.9 Major depressive disorder, single episode, unspecified; K80.80 Other cholelithiasis without obstruction; E11.42 Type 2 diabetes mellitus with diabetic polyneuropathy; R53.81 Other malaise; N18.30 Chronic kidney disease, stage 3 unspecified; G70.00 Myasthenia gravis without (acute) exacerbation; E11.22 Type 2 diabetes mellitus with diabetic chronic kidney disease; I89.0 Lymphedema, not elsewhere classified; B96.4 Proteus (mirabilis) (morganii) as the cause of diseases classified elsewhere; E11.65 Type 2 diabetes mellitus with hyperglycemia; Z86.14 Personal history of Methicillin resistant Staphylococcus aureus infection; Z89.421 Acquired absence of other right toe(s); Z88.1 Allergy status to other antibiotic agents; Z88.8 Allergy status to other drugs, medicaments and biological substances; Z79.52 Long term (current) use of systemic steroids; Z28.21 Immunization not carried out because of patient refusal
CPT/HCPCS: 10045; 10078; 10203; 10879

== ENCOUNTER 2021-08-24 15:47 | Inpatient (IN) | payer OTHER ==
[~2021-08-24] VITALS: Ht 177.8 cm; Wt 145.2 kg
--- NOTE | ~2021-08-24 | EMS ---
[facility] [address] [place] [address] EMS Patient Care Report Name: DELGADO BIGGS Room #: 456-P ADM IN M.R.#: [id number] Admission: 08/24/21 Attend Phys: Shoshana Zambrano MD Discharge: Date of : 57 Report #: [id number] THIS REPORT FOR: //name// Report Transmitted: 08/26/2021 10:47 EMS Care Summary [place], [place]/[facility] Incident [id number] @ 08/24/2021 15:14 Incident Location [address] Patient DELGADO BIGGS Female, 66 Years 1955 Patient Address [address] [place] [address] Patient History Chronic Obstructive Pulmonary Disease (COPD),Hypertension (HTN),Morbid Obesity,Edema,Chronic Kidney Disease,Type 2 Diabetes,Cellulitis,Methicillin-resistant Staphylococcus aureus (MRSA), Patient Allergies Sulfa,Shrimp allergy,Amoxicillin, Patient Medications Aripiprazole, Torsemide, Acetaminophen, Amlodipine, ASA, Gabapentin, Protonix, Chief Complaint soa- with fluid retention to body Disposition Transported No Lights/[place] Dispatch Reason Sick Person Transported To [facility] Narrative pt at co has her bed side. she states she was in hospital and has been back [address] [address] EMS Patient Care Report Name: DELGADO BIGGS Room #: 456-P [facility] IN .R.#: [id number] Admission: 08/24/21 Attend Phys: Shoshana Zambrano MD Discharge: Date of : 57 Report #: [id number] at home for one week. since she has been being given po lasix and trying to get fluid off her. she has taken 10 lbs of fluid off but still has pitting edema above knees and swelling in hands. her o2 sats dropped into 70's and she became more lethargic, her o2 was raised to 3lpm. on our arrival she was sating at 97% she was slow to respond after she was moved around she started becoming more alert. she was given iv and taken to er w/o incident Initial Vitals @15:25P: 73,BP: 121/62, @15:36P: 70,BP: 123/63,CO: 0,SpO2: 99, @15:19P: 73,R: 16,BP: 123/63,Pain: 0/10,GCS: 15,Temp: 99.9F,Glucose: 97,SpO2: 98,Revised Trauma: 12, Assessments @15:55MENTAL:No Abnormalities,SKIN:No Abnormalities,HEENT:Head/Face: No Abnormalities,Eyes: No Abnormalities,Neck/Airway: No Abnormalities,LUNG SOUNDS:Left Upper: Distension,Left Lower: Distension,Right Upper: Distension,Right Lower: Distension,ABDOMEN:Left Upper: Distension,Left Lower: Distension,Right Upper: Distension,Right Lower: Distension,PELVIS//GI:Pelvis GUOther,EXTREMITIES:Capillary Refill: Right Upper: < 2 Sec,Right Leg: Edema,Left Leg: Edema,PULSE:Radial: 2+ Normal,NEURO:No Abnormalities, Impression Respiratory disorder Procedures @15:31 ALS Assessment Response: ImprovedSucceeded @15:36 Oxygen FlowRate: 4 Device: Nasal Cannula (NC) Response: ImprovedSucceeded @15:36 IV Therapy - Normal Saline (.9% NaCl) 5cc (22 ga) Site: Hand-Left Response: UnchangedSucceeded Timeline 15:13,Call Received 15:13,Dispatch Notified 15:14,Dispatched 15:14,En Route 15:16,On Scene 15:19,At Patient 15:19,BP: 123/63 M,PULSE: 73,RR: 16 R,SPO2: 98 Ox,ETCO2: ,B,PAIN: 0,GCS: 15, 15:25,BP: 121/62 M,PULSE: 73,RR: R,SPO2: Ox,ETCO2: ,BG: ,PAIN: ,GCS: , 15:31,ALS Assessment,Response: ImprovedSucceeded, 15:36,IV Therapy - Normal Saline (.9% NaCl) 5cc 22 ga Site: Hand-Left,Response: UnchangedSucceeded, [facility] [address] [place] [address] EMS Patient Care Report Name: DELGADO BIGGS Shon Room #: 456-P [facility] IN M.R.#: [id number] Admission: 08/24/21 Attend Phys: Shoshana Zambrano MD Discharge: Date of : 57 Report #: [id number] 15:36,BP: 123/63 M,PULSE: 70,RR: R,SPO2: 99 Ox,ETCO2: ,BG: ,PAIN: ,GCS: , 15:36,Oxygen FlowRate: 4 Device: Nasal Cannula (NC) Response: ImprovedSucceeded, 15:36,Depart Scene 15:39,At Destination 16:15,Call Closed Disclaimer v1.1 Copyright 2020 [employer] This EMS Care Summary contains data elements from the applicable legal record (which may be displayed differently). It is designed to provide pertinent information for the following purposes: continuity of care, clinical quality, and state data reporting. The complete legal record is available to ED staff and administrators of the receiving hospital in [facility]'s Patient Tracker. All data is provided "as is."
[~2021-08-24 15:47] MED LIST changes: +ABILIFY20 MG PO; +ACIDOPHILUS1 EAC4 PO; +AMMONIUM LACTA226 GM TOP; +BRIMONIDINE TART5 ML OPHTHALMIC; +CHOLESTYRAMINE L4 GM PO; +HUMALOG100 UNIT/1 SUBQ; +INSULIN AS100 UNIT/2 SUBQ; +LASIX 40 MG TAB40 M1 PO; +METOLAZONE 5 MG5 MG PO; +MICONAZOLE5 GM TOP; +MIRALAX119 GM PO; +PREDNISONE 20 M20 M1 PO
[2021-08-24 16:04] VITALS: BP 130/43
[2021-08-24 16:42] LABS: ABSOLUTE NEUTROPHILS 13.6 thou/uL (1.4-8.2); BASOPHILS 0.6 % (0.0-2.0); EOSINOPHILS 0.9 % (0.0-3.0); HEMATOCRIT 25.1 % (37.0-47.0); LYMPHOCYTES 6.4 % (24.0-44.0); MCH 26.9 pg (26.0-34.0); MCHC 31.9 g/dL (28.0-37.0); MCV 84.3 fL (80.0-100.0); MONOCYTES 9.8 % (1.0-8.0); PLATELET COUNT 291 thou/uL (150-400); POLYS 82.3 % (36.0-66.0); RBC 2.98 mil/uL (4.20-5.00); RDW 23.6 % (10.5-14.5); WBC 16.5 thou/uL (4.0-11.0)
[2021-08-24 16:46] LABS: CALCIUM 8.4 mg/dL (8.5-10.1); CREATININE 1.8 mg/dL (0.6-1.0); POTASSIUM 4.4 mmol/L (3.5-5.1)
[2021-08-24 16:58] VITALS: BP 100/45
[2021-08-24 17:00] LABS: ALBUMIN 2.2 g/dL (3.4-5.0); TOTAL BILIRUBIN 0.5 mg/dL (0.2-1.0); TOTAL PROTEIN 6.7 g/dL (6.4-8.2)
[2021-08-24 19:23] LABS: URINE BILIRUBIN NEGATIVE (Negative); URINE BLOOD TRACE (Negative); URINE CLARITY CLEAR; URINE COLOR YELLOW; URINE GLUCOSE-RANDOM* NEGATIVE (Negative); URINE KETONES NEGATIVE (Negative); URINE LEUKOCYTES-REFLEX NEGATIVE (Negative); URINE NITRITE-REFLEX NEGATIVE (Negative); URINE PROTEIN (DIPSTICK) NEGATIVE (Negative); URINE UROBILINOGEN 0.2 E.U./dl (0.2-1.0)
[2021-08-24] MEDS ORDERED: ACIDOPHILUS LA1 EAC1 PO (19:59)
[2021-08-24] MEDS ORDERED: IPRAT-ALBUT 0.5-3 ML INH (20:06)
[2021-08-24] MEDS ORDERED: CLARITIN5 MG PO (20:07)
[2021-08-24] MEDS ORDERED: ZAROXOLYN 5MG TA5 MG PO (20:08)
[2021-08-24 21:41] VITALS: BP 112/39
[2021-08-25 00:31] VITALS: BP 153/54
[2021-08-25 04:52] VITALS: BP 149/63
[2021-08-25 06:11] LABS: HEMATOCRIT 25.2 % (37.0-47.0); HEMOGLOBIN 8.1 gm/dL (12.0-15.0); MCH 27.2 pg (26.0-34.0); MCV 84.9 fL (80.0-100.0); RBC 2.97 mil/uL (4.20-5.00); RDW 23.4 % (10.5-14.5); WBC 14.1 thou/uL (4.0-11.0)
[2021-08-25 06:20] LABS: CALCIUM 7.9 mg/dL (8.5-10.1); CREATININE 1.9 mg/dL (0.6-1.0); POTASSIUM 4.1 mmol/L (3.5-5.1)
--- NOTE | 2021-08-25 07:19 | EKG ---
[address] [place] [address] ELECTROCARDIOGRAM REPORT Name: DELGADO BIGGS Room #: 456-P ADM IN M.R.#: [id number] Admission: 08/24/21 Attend Phys: Shoshana Zambrano MD Discharge: Date of : 57 Report #: [id number] [facility] ED Test Date: 2021-08-24 Test Time: 16:11:47 Pat Name: DELGADO BIGSG Department: Room: [facility] Gender: F Equipment Superintendent: CATHERINE : 1955 Requested By: Tawana Syed Order Number: [id number] MD: Josué Winters Measurements Intervals [place] Rate: 72 P: 33 MI: 154 QRS: 12 QRSD: 101 T: 26 QT: 395 QTc: 433 Interpretive Statements Sinus rhythm Baseline wander in lead(s) V4 Compared to ECG 08/02/2021 13:23:07 No significant changes Electronically Signed On 08-25-2021 7:19:33 ADDRESSOGRAPH OPERATOR by Josué Winters [email or web address] <ELECTRONICALLY SIGNED> By: Josué Winters MD, [facility] 08/25/21 0719 10 10 Josué Winters MD, FACC /EPI
[2021-08-25 07:40] VITALS: BP 139/43
[2021-08-25 11:25] VITALS: BP 146/58
--- NOTE | 2021-08-25 11:32 | NUR ---
ARRIVED ON 4W FLOOR VIA BED ACCOMPANIED BY X1 STAFF AND TRANSFERRED TO BED 456P @ 0030. DIAGNOSIS OF COMMUNITY ACQUIRED PNEUMONIA, HYPOXIA AND THIERRY. CAME TO [facility] EM[facility]GENC[facility] FROM [facility]. COMORBIDITIES ARE MYASTHENIA GRAVIS, INSULIN DEPENDENT DIABETES. INCONTINENT OF BOWEL, WITH LAST BM ON 08/24 WHICH WAS REPORTED A LARGE FORMED STOOL. ON DIURETICS AND INCONTINENT OF BLADDER, 16FRENCH RAGLAND CATH INSTALLED IN THE ED ON 08/24. SPO2 97% ON O2 @ 2L VIA N/C FOR SHORTNESS OF BREATH. SALINE LOCKED IV IN LEFT HAND, WHICH THE PATIENT PULLED OUT SOON AFTER ARRIVING ON 4W FLOOR, AND 20 GUAGE SALINE LOCK RIGHT AC. FEET BILAT HAVE GREAT TOES PARTIALLY AMPUTATED, WELL HEALED. FEET ARE DRY. HEELS INTACT. +3 EDEMA TO LOWER EXTREMITIES. ALLERGY TO AMOXICILLAN AND CLAUVONIC ACID. DROWSY AND DID NOT AWAKEN UPON TRANSFER WITH X5 STAFF REQUIRED TO TRANSFER FROM ED GURNEY TO 4W BED. PATIENT AWAKENED AND WAS ABLE TO SIGN HER ADMISSION PAPERWORK.
--- NOTE | 2021-08-25 12:47 | NUR ---
ASSUMED PT CARE THIS AM. PT A&OX4, ABLE TO MAKE NEEDS KNOWN. PATIENT REPORTING PAIN THAT DECREASES WITH PAIN MEDICATION GIVEN PER EMAR. PATIENT HAS A RAGLAND CATHETER IN PLACE DRAINING YELLOW URINE. PATIENT ON 1 LITER OF OXYGEN VIA NC. PATIENT RECIEVES BREATHING TREATMENTS FROM RT WHEN AWAKE. MEDICATIONS TAKEN WITHOUT ISSUE. IV REMAINS PATENT, MEDICATIONS INFUSING WITHOUT ISSUE. FALL PRECAUTIONS ARE IN PLACE, CALL LIGHT WITHIN REACH.
--- NOTE | 2021-08-25 15:02 | NUR ---
PT ADMITTED RELATED TO PNEUMONIA, HYPOXIA, ACUTE KIDNEY INJURY. CM REVIEWED CHART AND SPOKE WITH THE CARE TEAM. CM MET WITH PT AT BEDSIDE THIS DAY. PT APPEARED TO BE A&0 X4. CM ROLE INTRODUCED. 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 PT INDICATED SHE GETS UP TO A WC AT THE [facility] AND THAT STAFF USE A LIFT DEVISE TO ASSIST WITH TRANSFERS. PT HAD BEEN HERE 08/02-08/18. CM REACHED OUT TO [facility] AND THEY HAD ATTEMTPED TO GET AUTH TO SKILL PT UPON HER RETURN BUT INSURANCE DENIED AGAIN. THEY WERE GOING TO INITIATE PART B THERAPY SERVICES. PT INDICATED SHE PLANS TO RETURN TO [facility] ONCE MEDICALLY STABLE. CM FOLLOWING REGARDING DC PLANNING.
--- NOTE | 2021-08-25 15:46 | EKG ---
[address] [address] ELECTROCARDIOGRAM REPORT Name: BIGGSDELGADO DAS Room #: 456-P ADM IN M.R.#: [id number] Admission: 08/24/21 Attend Phys: Shoshana Zambrano MD Discharge: Date of : 57 Report #: [id number] [facility] Test Date: 2021-08-25 Test Time: 15:40:00 Pat Name: DELGADO BIGGS Department: Room: [facility] Gender: F Panel Machine Setter: [id number] : 1955 Requested By: Shoshana Zambrano Order Number: [id number] MD: Josué Winters Measurements Intervals [place] Rate: 81 P: MI: QRS: 19 QRSD: 99 T: 63 QT: 390 QTc: 453 Interpretive Statements Significant change, suspect NSR RSR' in V1 or V2, probably normal variant Borderline ST depression, diffuse leads Compared to ECG 08/24/2021 16:11:47 RSR' in V1 or V2 now present ST (T wave) deviation now present Sinus rhythm no longer present Electronically Signed On 08-25-2021 15:46:24 PASTA PRESS OPERATOR by Josué Winters [email or web address] <ELECTRONICALLY SIGNED> By: Josué Winters MD, FACC 08/25/21 1546 154 1540 Josué Winters MD, FAC /EPI
[2021-08-25 15:49] VITALS: BP 152/44
[2021-08-25 20:24] VITALS: BP 125/48
[2021-08-26 00:25] LABS: HEMATOCRIT 24.1 % (37.0-47.0); HEMOGLOBIN 7.9 gm/dL (12.0-15.0); MCH 27.3 pg (26.0-34.0); MCHC 32.8 g/dL (28.0-37.0); MCV 83.1 fL (80.0-100.0); PLATELET COUNT 246 thou/uL (150-400); RDW 23.3 % (10.5-14.5); WBC 28.1 thou/uL (4.0-11.0)
[2021-08-26 00:58] VITALS: BP 136/51
[2021-08-26 01:44] LABS: ANISOCYTOSIS 3+; LARGE PLATELETS FEW; PLATELET ESTIMATE NORMAL; POIKILOCYTOSIS 2+; POLYCHROMASIA 1+; SCHISTOCYTES 1+
--- NOTE | 2021-08-26 04:35 | NUR ---
ASSUMED PT CARE THIS PM. PT IS ALERT AND ORIENTED X4. PT IS ON 2L OF O2 VIA NC. PT HAS T[employer] COMMUNICATIONS SERGEANT ON BLE. PT HAS AN OPEN SORE UNDERNEATH THE PANNUS. PT HAS RAGLAND IN PLACE WHICH IS PATENT. PT IS INCONTINENT OF BM. VS ARE WITHIN NORMAL RANGE. MEDS WERE GIVIEN PER EMAR ORDERS. PT IS DID NOT VERBALIZE ANY CONCERNS. FALL PRECAUTIONS IN PLACE. WILL CONTINUE TO MONITOR.
[2021-08-26 04:42] VITALS: BP 126/51
--- NOTE | 2021-08-26 07:06 | EKG ---
[address] [address] ELECTROCARDIOGRAM REPORT Name: DELGADO BIGGS Room #: 456-P ADM IN M.R.#: [id number] Admission: 08/24/21 Attend Phys: Shoshana Zambrano MD Discharge: Date of : 57 Report #: [id number] [facility] Test Date: 2021-08-25 Test Time: 16:09:39 Pat Name: DELGADO BIGGS Department: Room: [facility] Gender: F [employer] Machine Tender: [id number] : 1955 Requested By: Shoshana Zambrano Order Number: [id number] MD: Josué Winters Measurements Intervals [place] Rate: 99 P: 62 AL: 140 QRS: 26 QRSD: 88 T: 64 QT: 340 QTc: 437 Interpretive Statements Sinus rhythm Compared to ECG 08/25/2021 15:40:00 ST (T wave) deviation no longer present Electronically Signed On 08-26-2021 7:06:33 WIND PROJECTS SUPERVISOR by Josué Winters [email or web address] <ELECTRONICALLY SIGNED> By: Josué Winters MD, [facility] 08/26/21 0706 1609 1609 Josué Winters MD, FACC /EPI
[2021-08-26 07:25] VITALS: BP 123/52
--- NOTE | 2021-08-26 08:59 | 2DMMODE ---
[facility] [place] [address] 2 D/M-MODE ECHOCARDIOGRAM Name: KALYANDELGADO A Room #: 456-P [facility] IN M.R.#: [id number] Admission: 08/24/21 Attend Phys: Shoshana Zambrano MD Discharge: Date of : 57 Report #: [id number] THIS REPORT FOR: cc: Micah Fonseca MD, Christopher B. MD Santiago, Patrick MD [facility] ~ APPROVED REPORT Study performed: 08/26/2021 08:02:00 EXAM: Comprehensive 2D, Doppler, and color-flow Echocardiogram Patient Location: Bedside Room #: 459 Status: routine BSA: 2.55 HR: 61 bpm BP: 126/51 mmHg Rhythm: NSR Other Information Study Quality: Technically DifficultTechnically Limited Technically limited study due to body habitus, inability to position patient. Indications Congestive Heart Failure Diabetes Sepsis Dyspnea Hypertension/HDD 2D Dimensions IVSd: 13.13 (7-11mm) LVOT Diam: 18.58 (18-24mm) LVDd: 52.56 mm PWd: 12.98 (7-11mm) Ascending Ao: 29.82 (22-36mm) LVDs: 29.32 (25-40mm) Left Atrium: 40.83 (27-40mm) Aortic Root: 26.91 mm IVC: 24.00 mm Aortic Valve AoV Peak Yousuf.: 1.75 m/s AO Peak Gr.: 12.25 mmHg LVOT Max P.86 mmHg LVOT Max V: 1.21 m/s ISELA Vmax: 1.88 cm2 [facility] [address] [place] [address] 2 D/M-MODE ECHOCARDIOGRAM Name: DELGADO BIGGS Room #: 456-P [facility] IN [facility]#: [id number] Admission: 08/24/21 Attend Phys: Gavi Gonzalez Discharge: Date of : 57 Report #: [id number] Pulmonary Valve PV Peak Yousuf.: 1.44 m/s PV Peak Gr.: 8.24 mmHg Tricuspid Valve TR Peak Yousuf.: 4.19 m/s TR Peak Gr.: 70.22 mmHg PA Pressure: 80.00 mmHg Left Ventricle The left ventricle is normal size. There is normal LV segmental wall motion. Mild concentric left ventricular hypertrophy. The left ventricular systolic function is normal. The left ventricular ejection fraction is within the normal range. LVEF is 65%. The left ventricular diastolic function is normal. Right Ventricle The right ventricle is normal size. The right ventricular systolic function is normal. Atria Left atrium is dilated. Right atrium is dilated. Aortic Valve The aortic valve is normal in structure. The Aortic valve is sclerotic. No aortic regurgitation is present. There is no aortic valvular stenosis. Mitral Valve The mitral valve is normal in structure. Mild mitral regurgitation. No evidence of mitral valve stenosis. Tricuspid Valve The tricuspid valve is normal in structure. There is mild to moderate tricuspid regurgitation. Estimated PAP 80 mmHg. There is severe pulmonary hypertension. Pulmonic Valve The pulmonary valve is normal in structure. Trace pulmonic regurgitation. Great Vessels The aortic root is normal in size. IVC is dilated and collapses <50% with inspiration. Pericardium [facility] [address] [place] [address] 2 D/M-MODE ECHOCARDIOGRAM Name: DELGADO BIGGS Shon Room #: 456-P [facility] IN ..#: [id number] Admission: 08/24/21 Attend Phys: Gavi Gonzalez Discharge: Date of : 57 Report #: [id number] There is no pericardial effusion. <Conclusion> Normal left ventricle size/mild concentric hypertrophy Ejection fraction 60% Normal right ventricle size/function Mild biatrial enlargement Normal aortic valve structure and function Mild mitral valve insufficiency Mild to moderate tricuspid valve insufficiency Severe pulmonary hypertension PA pressure estimated at 80 mmHg No pericardial effusion Normal aortic root size <ELECTRONICALLY SIGNED> By: Josué Winters MD, FAC 08/26/21858 8 8 Josué Winters MD, FACC /INF
--- NOTE | 2021-08-26 11:33 | HC ---
[facility] [place] [address] CONSULTATION Name: DELGADO BIGGS Room #: 456-P ADM IN M.R.#: [id number] Admission: 08/24/21 Attend Phys: Shoshana Zambrano MD Discharge: Date of : 57 Report #: [id number] THIS REPORT FOR: cc: Micah Fonseca MD, Christopher B. MD Barry, Joseph W. MD ~ DATE OF SERVICE: 08/25/2021 INFECTIOUS DISEASE CONSULTATION ATTENDING PHYSICIAN: Dr. Zambrano. REASON FOR EVALUATION: Gram-negative septicemia. HISTORY OF PRESENT ILLNESS: Chart reviewed and the patient examined. This is a 66-year-old known to myself, who has actually been hospitalized last month with similar gram-negative septicemia, was found to have extended-spectrum beta-lactamase producing Proteus from her urine as well as blood. Also, has history of myasthenia gravis, is very weak, who presented with complaints of fatigue, shortness of breath, lower back pain and leg pain, at some point, recently had been dropped. She is nonambulatory and uses a wheelchair. She was noted to have some low-grade temperature elevations as well. The evaluation was undertaken in the Emergency Room. Chest x-ray noted some patchy infiltrates. COVID testing was negative. Did have a mildly elevated white count of 16.5 and creatinine had been increased from month earlier, now to 1.8. Imaging of the abdomen and pelvis was fairly unremarkable. Cholelithiasis has been unchanged as well as uterine fibroids. Urinalysis interestingly was fairly unremarkable. Procalcitonin mildly elevated at 1.24. Blood cultures collected at the time of admission now with growth of gram-negative rods. Empirically started on combination therapy with cefepime and vancomycin. Presently, she complains of severe back and abdominal pain that favors the left side. ALLERGIES: LISTED TO AUGMENTIN AND BACTRIM. CURRENT MEDICATIONS: Include gabapentin, enoxaparin, acetaminophen, ipratropium/albuterol inhaler, vancomycin, ascorbic acid, vitamin, ____, metolazone, furosemide, aripiprazole, bupropion, aspirin, amlodipine, sliding scale insulin, prednisone, pantoprazole, cefepime, pyridostigmine, p.r.n. analgesics, antiemetics. PAST MEDICAL HISTORY: Has diabetes mellitus, chronic anemia, hypertension, myasthenia gravis, neuropathy. She has a cardiomyopathy with history of congestive heart failure, peripheral vascular disease, hyperlipidemia, depression, reflux, chronic renal insufficiency, morbid obesity. SOCIAL AND FAMILY HISTORY: Available in chart. [address] [address] CONSULTATION Name: DELGADO BIGGS Shon Room #: 456-P [facility] IN M.R.#: [id number] Admission: 08/24/21 Attend Phys: Shoshana Zambrano MD Discharge: Date of : 57 Report #: [id number] REVIEW OF SYSTEMS: Limited, otherwise as noted above. PHYSICAL EXAMINATION: GENERAL: She is chronically ill appearing. She is mildly slow to respond. She appears chronically ill and undernourished. She is in moderate distress. VITAL SIGNS: Temperature 100.6, pulse 88, respirations 18, blood pressure 146/58. SKIN: Warm, dry, no rashes. HEENT: Normocephalic. Extraocular muscles intact. NECK: Supple. Nasal cannula in place at 1 liter. LUNGS: Bilateral few scattered coarse breath sounds. HEART: Regular, may have a soft systolic murmur. ABDOMEN: Distended, somewhat firm, guarding. I do not know if there are any particular peritoneal signs, but does have pain to palpation of the larger muscles of the lower limbs. GENITOURINARY AND RECTAL: Deferred. LABORATORY DATA: As described above. Blood cultures 2/2 with gram-negative rods. Most recent CBC: White count of 14.1, H and H of 8.1 and 25.2, platelets of 264. Electrolytes: Sodium 137, potassium 4.1, chloride 101, bicarbonate is 27, anion gap of 9, BUN and creatinine 26 and 1.9. Procalcitonin 1.24. ASSESSMENT AND PLAN: Gram-negative septicemia of unclear etiology. Urinalysis is fairly unremarkable. Does have back and abdominal pain, seems to favor the left side. Certainly with recent history of Proteus, question of a more focal area, check additional diagnostic studies including MRI of the thoracic and lumbar spine to exclude a process there. We will check echo. She is quite tenuous at this point. Continue to monitor expectantly, at risk for complications. <ELECTRONICALLY SIGNED> By: Galdino Curtis MD 08/26/21 1133 1331 1845 Galdino Curtis MD /nt
[2021-08-26 13:14] VITALS: BP 140/54
--- NOTE | 2021-08-26 13:46 | NUR ---
Pt triggered for excessive BMI 45.9, extreme class III obesity. Noted pt with multiple admits recently for fluid overload, CHF. Dx mysthenia gravis, with some degree of dysphagia r/t dx per pt, but no c/o chewing/swallowing difficulties at this time. Weight highly variable in chart r/t fluid/aggressive diuresis. On [facility] diet, intakes low yesterday on this admit but intakes 75-100% on past admits. Meds and labs reviewed. Pt declines nutrition education and reports had some in the past r/t DMII and weight management. Low nutrition risk at this time.
--- NOTE | 2021-08-26 14:51 | NUR ---
ASSUMED PT CARE THIS AM. PT A&OX4, ABLE TO MAKE NEEDS KNOWN. PATIENT REPORTING BACK PAIN THAT DECREASES WITH PAIN MEDICATION GIVEN PER EMAR. IV REMAINS PATENT, MEDICATIONS INFUSING WITHOUT ISSUE. RAGLAND CATHETER IN PLACE. PATIENT ON 2 LITERS OF OXYGEN VIA NC. MEDICATIONS TAKEN WITHOUT ISSUE. FALL PRECAUTIONS ARE IN PLACE, CALL LIGHT WITHIN REACH.
--- NOTE | 2021-08-26 16:23 | NUR ---
CARE TEAM INDICATED THAT PT WILL LIKELY BE HERE THROUGH THE WEEKEND. MAY BE DC READY COME MONDAY TO RETURN TO [facility]. CM FOLLOWING.
[2021-08-26 17:17] VITALS: BP 137/59
[2021-08-26 20:29] VITALS: BP 134/51
[2021-08-27 00:40] VITALS: BP 129/42
[2021-08-27 04:47] VITALS: BP 144/60
--- NOTE | 2021-08-27 05:06 | NUR ---
ASSUMED PT CARE THIS PM. PT IS ALERT AND ORIENTED X4. PT IS ON ISOLATION FOR MRSA IN NARES. PT IS ON 2L OF O2 VIA NC. PT HAS OPEN SORE UNDERNEATH THE PANNUS. PT HAS +2 EDEMA ON BLE. PT HAS RAGLAND IN PLACE. PT C/O OF TREMORS AND NON-RADIATING LEFT SIDED PAIN. PT C/O PRN NARCOTIC NOT HELPING WITH PAIN AND WANTS SOMETHING STRONGER. NO OTHER CONCERN WERE VERBALIZED BY PT. FALL PRECAUTIONS IN PLACE. WILL CONTINUE TO MONITOR.
[2021-08-27 07:20] VITALS: BP 144/52
[2021-08-27 10:30] LABS: HEMATOCRIT 24.5 % (37.0-47.0); HEMOGLOBIN 7.9 gm/dL (12.0-15.0); MCH 27.1 pg (26.0-34.0); MCHC 32.4 g/dL (28.0-37.0); MCV 83.7 fL (80.0-100.0); RBC 2.92 mil/uL (4.20-5.00); RDW 23.4 % (10.5-14.5); WBC 14.2 thou/uL (4.0-11.0)
[2021-08-27 10:43] LABS: CALCIUM 7.9 mg/dL (8.5-10.1); POTASSIUM 4.9 mmol/L (3.5-5.1)
[2021-08-27 10:44] LABS: CREATININE 3.8 mg/dL (0.6-1.0)
--- NOTE | 2021-08-27 12:33 | NUR ---
CARE TEAM INDICATED THAT PT WILL LIKELY NEED TO BE HERE OVER THE WEEKEND AND THAT SHE MIGHT DC BACK TO [facility] BEGINING OF NEXT WEEK ON IV ABX. CM UPDATED KRISTA BOWLES. CM FOLLOWING REGARDING DC PLANNING.
--- NOTE | 2021-08-27 15:27 | NUR ---
Assumed pt care at 7am.Assessment completed. vss. Pt has generalized edema from waist down. Cr today was 3.8 Dr Zambrano notified,order noted. Consult called to Dr Lux but Dr Lai returned call and order noted. Complete bath and bed change done.Pain med given for back pain with partial relief. Will continue to monitor.
[2021-08-27 15:32] VITALS: BP 128/61
[2021-08-27 20:21] VITALS: BP 146/55
[2021-08-28 06:09] LABS: CALCIUM 7.8 mg/dL (8.5-10.1); CREATININE 3.4 mg/dL (0.6-1.0); POTASSIUM 5.1 mmol/L (3.5-5.1)
[2021-08-28 07:07] VITALS: BP 143/43
--- NOTE | 2021-08-28 09:00 | NUR ---
ASSUMED CARE AT 1900, PT LAYING IN BED COMFORTABLY, REQUESTING PAIN MEDICATION, NO ADVERSE REACTION, CHECK AND CHANGED PER PROTOCOL, COMPLIANT TO TX, CONTINUES TO BE ON PAIN MANAGEMENT, WILL CONTINUE TO MONITOR.
[2021-08-28 11:10] VITALS: BP 139/55
[2021-08-28 15:48] VITALS: BP 136/47
--- NOTE | 2021-08-28 17:55 | NUR ---
Pt is A & O x4. Pt VS stable. Pt is NSR on the tele. Pt has abdi in place.pt currentlty on 1L of 02 per nasal cannula. Pt cont in contact precautions. Pt received medications as ordered and also received PRN medications as requested by pt. PT is able to make needs known
[2021-08-28 19:54] VITALS: BP 134/42
--- NOTE | 2021-08-29 05:11 | NUR ---
ASSUMED CARE AT 1900 THROUGH 0000, PT LAYING COMFORTABLY IN BED, CHECK AND CHANGED, REPOSITIONED NEEDED, REPORT COMPLETED TO THE ONCOMING NURSE, PT REMAINS IN BED CALL LIGHT WITHIN REACHM, VOICES NO NEED AT THIS THIS TIME. WILL CONTINUE TO MONITOR.
--- NOTE | 2021-08-29 05:51 | NUR ---
RECEIVED CARE OF THIS PATIENT AT 0000. PATIENT WAS SLEEPING AT TIME. PATIENT ORIENTED X4. AWAKEN LATER AND ASKED FOR PAIN MED, GIVEN. RAGLAND PATENT. REMAINS IN ISO FOR MRSA AND ESBL. REMAINS ON BEDREST. SLEPT MOST OF NIGHT.
[2021-08-29 06:17] LABS: CREATININE 2.7 mg/dL (0.6-1.0); POTASSIUM 4.9 mmol/L (3.5-5.1)
[2021-08-29 07:54] VITALS: BP 146/54
--- NOTE | 2021-08-29 17:01 | NUR ---
Pt is A &O x4. Pt VS stable. Pt is NSR on the tele. Pt is x1 assist with ADLs and cares. Pt received medications as ordered and also received PRN medications as requested by pt. Pt is able to make needs known
[2021-08-29 17:30] VITALS: BP 134/43
[2021-08-29 19:44] VITALS: BP 121/49
[2021-08-30 04:24] VITALS: BP 154/49
--- NOTE | 2021-08-30 05:43 | NUR ---
ASSUMED CARE AT 1900, PT REMIANS IN BED, REPOSITIONED PER PROTOCOL, REPORTS NO PAIN AT THIS TIME, SLEPT THROUGH THE NIGHT, COMPLIANT WITH TX, NO ADVERSE REACTION NOTED, WILL CONTINUE TO MONITOR.
[2021-08-30 05:51] LABS: CALCIUM 8.7 mg/dL (8.5-10.1); CREATININE 2.3 mg/dL (0.6-1.0); POTASSIUM 4.7 mmol/L (3.5-5.1)
[2021-08-30 07:00] VITALS: BP 151/55
[2021-08-30 11:00] VITALS: BP 149/43
--- NOTE | 2021-08-30 13:41 | NUR ---
CM FAXED CLINICAL UPDATES TO [facility] THIS AM. CM ALSO FAXED UPDATES TO [employer]. ID INDICATING THAT PT WILL NEED 2-3 MORE WEEKS OF MEROPENEM UPON DC. CM FOLLOWING REGARDING DC PLANNING.
[2021-08-30 17:00] VITALS: BP 139/39
--- NOTE | 2021-08-30 19:48 | NUR ---
Assumed pt care at 7am.Pt in bed most of the time. Assessment completed.vss. Repositioned q2h for comfort.Meds given as ordered and well tolerated.Pt has generalized edema. Lasix ivp given. Renal function result better today. Dr Zambrano and Mo here,order noted.Report off to rishabh rn.
[2021-08-30 19:51] VITALS: BP 141/43
[2021-08-31 03:50] VITALS: BP 113/44
[2021-08-31 07:11] VITALS: BP 154/43
--- NOTE | 2021-08-31 07:48 | NUR ---
RECEIVED CARE OF THIS PATIENT AT 1900. PATIENT ALERT AND ORIENTED X4. REMAINS ON BEDREST. HAS TREMORS IN BOTH UPPER EXT. REMAINS IN CONTACT ISO. ACCUCHECK WAS 153, RECEIVED 3 UNITS LISPRO INSULIN. IV IN LAC. C/O PAIN MED GIVEN. SLEPT MOST OF NIGHT.
[2021-08-31 09:18] LABS: ALBUMIN 2.1 g/dL (3.4-5.0); CALCIUM 8.7 mg/dL (8.5-10.1); CREATININE 2.2 mg/dL (0.6-1.0); PHOSPHORUS 4.4 mg/dL (2.6-4.7); POTASSIUM 4.6 mmol/L (3.5-5.1)
[2021-08-31 11:31] VITALS: BP 151/56
--- NOTE | 2021-08-31 14:30 | NUR ---
PT RESTING TODAY. WORKED WITH PT/OT. CT OF SINUSES COMPLETED TODAY. PT AFEBRILE, POLYUREA, NO BM, POOR APPETITE. CBG WELL CONTROLLED. PT HAS BEEN THOUROUGHLY UPDATED AND EDUCATED ON PT CONDITION AND POC. PT SLOWLY PROGRESSING TOWARDS POC.
--- NOTE | 2021-08-31 15:32 | NUR ---
CARE TEAM INDICATED THAT PT WAS HAVING A CT THIS DAY AND THAT HOSPITALIST WANTED TO SPEAK WITH ID RELATED TO IV ABX TREATMENT. ID HAD INDICATED THEY WANTED PT TO CONTINUE ON IV MEROPENEM FOR A FEW WEEKS. CM INDICATED THAT FACILITY IS AWARE OF THIS AND ACCEPTING AND THAT THEY HAVE INSURANCE AUTH TO SKILL PT UPON HER RETURN. HOSPITALIST INDICATED PT WASN'T DC READY THIS DAY. CM UPDATED FACILITY. CM FOLLOWING REGARDING DC PLANNING.
[2021-08-31 16:25] VITALS: BP 147/55
[2021-08-31 19:55] VITALS: BP 115/44
[2021-08-31 20:48] VITALS: BP 141/51
[2021-08-31 21:12] LABS: HEMATOCRIT 23.3 % (37.0-47.0); HEMOGLOBIN 7.8 gm/dL (12.0-15.0); MCHC 33.3 g/dL (28.0-37.0); RBC 2.87 mil/uL (4.20-5.00); RDW 22.4 % (10.5-14.5); WBC 15.5 thou/uL (4.0-11.0)
[2021-08-31 21:22] LABS: CALCIUM 8.6 mg/dL (8.5-10.1); CREATININE 2.3 mg/dL (0.6-1.0); MAGNESIUM 2.4 mg/dL (1.8-2.4); POTASSIUM 5.1 mmol/L (3.5-5.1)
[2021-09-01 00:59] VITALS: BP 119/49
[2021-09-01 04:21] VITALS: BP 129/51
[2021-09-01 06:59] LABS: URINE BILIRUBIN NEGATIVE (Negative); URINE BLOOD NEGATIVE (Negative); URINE CLARITY CLEAR; URINE COLOR YELLOW; URINE GLUCOSE-RANDOM* NEGATIVE (Negative); URINE KETONES NEGATIVE (Negative); URINE LEUKOCYTES-REFLEX NEGATIVE (Negative); URINE NITRITE-REFLEX NEGATIVE (Negative); URINE PROTEIN (DIPSTICK) TRACE (Negative); URINE SPECIFIC GRAVITY 1.025 (1.005-1.035); URINE UROBILINOGEN 0.2 E.U./dl (0.2-1.0)
[2021-09-01 07:00] VITALS: BP 116/38
[2021-09-01 07:21] LABS: HEMOGLOBIN 7.7 gm/dL (12.0-15.0); MCH 26.3 pg (26.0-34.0); MCHC 32.1 g/dL (28.0-37.0); MCV 81.9 fL (80.0-100.0); RBC 2.92 mil/uL (4.20-5.00); RDW 22.3 % (10.5-14.5)
[2021-09-01 07:43] LABS: CALCIUM 8.4 mg/dL (8.5-10.1); MAGNESIUM 2.5 mg/dL (1.8-2.4)
--- NOTE | 2021-09-01 07:45 | NUR ---
ASSUMED CARE OF PT AT 1900. PT ASSESSED TO BE AOX3 66F PRESENTING WITH INFECTION AND THIERRY. AT START OF SHIFT PT WAS LETHARGIC AND RUNNING TEMP OF 102 DESPITE TYLENOL X1. BP STABLE, OXYGEN STABLE, HEART RYTHM REGULAR, SUGAR NORMAL. ALONG WITH ENGINEERING AID EMRE, ASSESSED PT AND ORDERED LABS, CT OF L LEG D/T PAIN, AND MERREM GIVEN WITH SECOND DOSE TYLENOL. SENT NEW URINE CULTURE CLEAN CATCH. MIDNIGHT TEMP CONTINUED TO ELEVATE AT 102.1 WITH PROCALCITONIN CRITICAL. PER ENGINEERING AID AND ID GAVE 1X DOSE 600MG IBUPROFEN AND STARTED PT ON VANCOMYCIN. THROUGHOUT THE REST OF THE NIGHT PT RESTED QUIETLY IN BED, PAIN CONTROLLED WITH ORAL AND IV PAIN MEDICINE. LINENS CHANGED AND CLEANED FOR BOWEL MOVEMENT IN AM. AM VITALS STABLE, TEMP REDUCED TO NORMAL. ALL INFORMATION PASSED ONTO DAYSHIFT RN.
[2021-09-01 07:47] LABS: POTASSIUM 4.1 mmol/L (3.5-5.1)
--- NOTE | 2021-09-01 09:17 | NUR ---
Nutrition followup: pt continues on 4 west with dx myasthenia gravis, needing antibiotics for 2-3 more weeks. Also THIERRY/CKD. Eating on average 50% of meals on Carb controlled diet. BG 132-203, on SSI, glargine, also steroid. Generalized edema, diuresing. 09/01 BM. Noted wound indication but no documentation of wound. Assisted pt with meal ordering as she was not aware of option. Agrees to one glucerna daily to supplement suboptimal po intakes. Would suggest adding 2 gm Na to diet order if pt is eating >60% of meals. Low nutrition risk with interventions in place.
--- NOTE | 2021-09-01 09:30 | NUR ---
PT WAS SLEEPING THIS AM. PT IS AWAKE AT THIS TIME AND WATCHING TV. PT ALERT AND ORIENTED X4. PT STATED SHE HAS PAIN TO LOWER LEGS. PT STATED SHE HAD A BM THIS AM WASN'T SURE ABOUT GETTING LAXATIVES THIS AM. PT LOWER EXT IS EDEMATOUS +2 BILATERALY. RAGLAND TO DD. PT OXYGEN ON 2L NC. SAT IS 95% WILL WEAN OFF OXYGEN TODAY. LUNGS CLEAR, DIMINISHED TO BASES, NO COUGH NOTED.
[2021-09-01 11:00] VITALS: BP 150/54
--- NOTE | 2021-09-01 15:25 | NUR ---
IV TEAM NURSE IS HERE ALSO LYMPH NURSE TO SEE PT. PT COMPLAINED OF PAIN TO LEGS DURING OT THERAPY. PT WAS GIVEN NORCO 5MG PO AT 1428.
[2021-09-01 16:00] VITALS: BP 156/58
--- NOTE | 2021-09-01 16:06 | NUR ---
Pt has 2 LUCY bandages donned after PT initial eval. If bandages removed, please don tubigrip stockings to keep edema reduced.
--- NOTE | 2021-09-01 18:46 | NUR ---
PT COMPLAINS OF PAIN TO LEFT LEG OF CRAMPING FEELING. ADM NORCO 5MG PO FOR PAIN.
[2021-09-01 20:01] VITALS: BP 157/59
[2021-09-02] VITALS (7 sets, daily range): BP systolic 121–159; BP diastolic 31–51
[2021-09-02 05:31] LABS: HEMOGLOBIN 7.7 gm/dL (12.0-15.0); MCH 26.5 pg (26.0-34.0); MCHC 32.2 g/dL (28.0-37.0); MCV 82.3 fL (80.0-100.0); RBC 2.91 mil/uL (4.20-5.00); RDW 22.4 % (10.5-14.5)
[2021-09-02 06:34] LABS: CALCIUM 8.4 mg/dL (8.5-10.1); CREATININE 2.1 mg/dL (0.6-1.0); MAGNESIUM 2.5 mg/dL (1.8-2.4); POTASSIUM 4.3 mmol/L (3.5-5.1)
--- NOTE | 2021-09-02 07:25 | NUR ---
ASSSUMED CARE OF PT AT 1900. PT ASSESSED TO BE AOX4 66F HERE FOR INFECTION AND THIERRY. PT RESTED THROUGHOUT THE NIGHT IN ROOM WITH NO COMPLAINTS, VSS. PAIN CONTROLLED WITH ORAL AND IV PAIN MEDS, STABLE ON 1-2L, SR ON THE MONITOR, FALL PRECAUTIONS IN PLACE, RAGLAND PATENT. PT TEMPERATURE DID NOT GO ABOVE 100 TONIGHT, TYLENOL GIVEN X1. BLOOD CULTURE SHOWS GRAM - RODS, PASSED ON TO CLAU ANDREA. WILL CONT TO MONITOR.
--- NOTE | 2021-09-02 13:31 | NUR ---
PT RESTING COMFORTABLY. AFEBRILE, ADEQUATE UOP, NO BM (PRN MEDS GIVEN), FAIR APPETITE. PT HAS BEEN THOUROUGHLY UPDATED AND EDUCATED ON PT CONDITION AND POC. PT SLOWLY PROGRESSING TOWARDS POC.
[2021-09-03 04:35] VITALS: BP 136/44
[2021-09-03 05:25] LABS: HEMOGLOBIN 7.5 gm/dL (12.0-15.0); MCH 27.1 pg (26.0-34.0); MCHC 32.5 g/dL (28.0-37.0); MCV 83.3 fL (80.0-100.0); RBC 2.75 mil/uL (4.20-5.00); RDW 22.3 % (10.5-14.5); WBC 12.3 thou/uL (4.0-11.0)
[2021-09-03 05:45] LABS: CALCIUM 8.3 mg/dL (8.5-10.1); CREATININE 2.2 mg/dL (0.6-1.0); MAGNESIUM 2.5 mg/dL (1.8-2.4)
[2021-09-03 06:30] LABS: POTASSIUM 5.3 mmol/L (3.5-5.1)
--- NOTE | 2021-09-03 06:43 | NUR ---
ASSUMED CARE OF PT AT 1900. PT ASSSESSED TO BE AOX4 66F PRESENTING WITH INFECTION. PT RESTED IN ROOM THROUGHOUT THE NIGHT WITH FEW COMPLAINTS, VSS. STABLE ON RA, SR ON TELE, RAGLAND PATENT. CHANGED FOR BM, NOTICED MOISTURE RELATED SKIN TEARS FORMING IN FOLDS OF BUTTOCK. PAIN MEDS GIVEN FOR L LEG PAIN, TYLENOL GIVEN TO CONTROL TEMP. WILL CONT TO MONITOR.
[2021-09-03 07:34] VITALS: BP 119/44
--- NOTE | 2021-09-03 11:45 | NUR ---
SPOKE WITH DOLLY AT [facility] SHE STILL WTG ON AUTH FAXED CLINICAL UPDATE RECEIVED CONFIRMATION.
--- NOTE | 2021-09-03 15:34 | NUR ---
PT ALERT AND ORIENTED TIMES FOUR, BUT SOMEWHAT SLOW TO RESPOND TO QUESTIONS. VSS. RAGLAND TO DD. PT C/O PAIN PRN PAIN MEDICATIONS GIVEN WITH SOME RELEIF. PT TOLERATES MEDS AND MEALS. PT SLOWLY PROGRESSING OLIVIAS POC GOALS.
[2021-09-03 16:59] VITALS: BP 180/51
[2021-09-03 18:26] VITALS: BP 123/48
[2021-09-03 20:01] VITALS: BP 116/61
[2021-09-04 00:41] VITALS: BP 120/26
[2021-09-04 04:21] VITALS: BP 135/28
--- NOTE | 2021-09-04 04:55 | NUR ---
Pt. rested quietly during the night when checked on during frequent rounds. She c/o generalized pain and po pain medication given (see emar) with some relief noted. Bed alarm is on.
[2021-09-04 05:49] LABS: HEMATOCRIT 22.4 % (37.0-47.0); HEMOGLOBIN 7.3 gm/dL (12.0-15.0); MCH 26.8 pg (26.0-34.0); MCHC 32.5 g/dL (28.0-37.0); MCV 82.3 fL (80.0-100.0); RBC 2.72 mil/uL (4.20-5.00); RDW 22.6 % (10.5-14.5); WBC 12.3 thou/uL (4.0-11.0)
[2021-09-04 05:54] LABS: CALCIUM 8.1 mg/dL (8.5-10.1); CREATININE 2.4 mg/dL (0.6-1.0); MAGNESIUM 2.7 mg/dL (1.8-2.4); POTASSIUM 4.9 mmol/L (3.5-5.1)
[2021-09-04 08:03] VITALS: BP 121/37
[2021-09-04 12:06] VITALS: BP 118/43
[2021-09-04 17:20] VITALS: BP 118/43
[2021-09-04 20:23] VITALS: BP 120/48
[2021-09-05 05:25] LABS: HEMATOCRIT 21.4 % (37.0-47.0); MCH 27.3 pg (26.0-34.0); MCHC 32.8 g/dL (28.0-37.0); MCV 83.4 fL (80.0-100.0); RBC 2.57 mil/uL (4.20-5.00); RDW 22.1 % (10.5-14.5); WBC 14.6 thou/uL (4.0-11.0)
[2021-09-05 06:03] LABS: CALCIUM 8.1 mg/dL (8.5-10.1); CREATININE 2.5 mg/dL (0.6-1.0); PHOSPHORUS 5.2 mg/dL (2.5-4.9); POTASSIUM 5.5 mmol/L (3.5-5.1)
[2021-09-05 07:54] LABS: ALBUMIN 1.9 g/dL (3.4-5.0); CALCIUM 8.2 mg/dL (8.5-10.1); CREATININE 2.6 mg/dL (0.6-1.0); PHOSPHORUS 4.9 mg/dL (2.6-4.7); POTASSIUM 5.5 mmol/L (3.5-5.1)
[2021-09-05 08:00] VITALS: BP 124/40
[2021-09-05 09:40] LABS: TIBC 151 ug/dL (250-450)
[2021-09-05 10:07] LABS: % SATURATION 26 % (20-39); IRON 40 ug/dL (50-170)
[2021-09-05 13:45] VITALS: BP 124/40
[2021-09-05 19:00] VITALS: BP 126/66
[2021-09-06 00:18] VITALS: BP 133/37
[2021-09-06 04:37] VITALS: BP 148/40
[2021-09-06 05:56] LABS: ALBUMIN 2.1 g/dL (3.4-5.0); CALCIUM 8.5 mg/dL (8.5-10.1); CREATININE 2.2 mg/dL (0.6-1.0); POTASSIUM 4.9 mmol/L (3.5-5.1)
[2021-09-06 07:34] VITALS: BP 155/38
--- NOTE | 2021-09-06 07:48 | NUR ---
ASSUMED CARE AT 1900, PT LAYING COMFORTABLY IN BED REPORTS NO PAIN OR DISCOMFORT, CHECK AND CHANGED NEEDED, COMPLIANT TO TX, NO ADVERSE REACTION NOTED, REPOSITION SCHEDULED AND NEEDED, WILL CONTINUE TO MONITOR.
[2021-09-06 08:11] LABS: HEMATOCRIT 23.5 % (37.0-47.0); HEMOGLOBIN 7.7 gm/dL (12.0-15.0); MCH 27.2 pg (26.0-34.0); MCHC 32.7 g/dL (28.0-37.0); RBC 2.83 mil/uL (4.20-5.00); RDW 22.4 % (10.5-14.5); WBC 15.6 thou/uL (4.0-11.0)
--- NOTE | 2021-09-06 09:32 | NUR ---
WOUND CONSULT; THIS IS A KNOWN PATIENT TO WOUND CARE. THE PATIENT HAS HAS THESE AREAS ON HER BUTTOCKS FOR OVER A MONTH. THERE IS NO S/S OF INFECTION. IT IS PAINFUL TO THE PATIENT TO TURN AND THEREFORE COMPLIANCE IS AN ISSUE THAT IS UNDERSTANDABLE. RED BEEFY COLORED WOUND BED. PATIENT HAS LOOSE STOOL. RECOMMENDATIONS; -ZGUARD,AND A SACRAL FOAM M/W/W/F PRN. -Q2H TURNING AT A MINIMUM. -A LOW AIR LOSS BED PUMPF ON THE ISOFLEX SETTING AT ALL TIMES. DISCUSED WITH RN
[2021-09-06 12:30] VITALS: BP 134/56
--- NOTE | 2021-09-06 16:06 | NUR ---
PT CONTINUES ON IV MEROPENEM. PT TO HAVE CT SCAN THIS DAY. CM PROVIDED UPDATE TO [facility] THEY INDICATED THAT THEY HAVE AUTH TO ACCEPT PT BACK SKILLED ONCE MEDICALLY STABLE. CM NOTIFIED PHYSICIAN. CM FOLLOWING REGARDING DC PLANNING.
[2021-09-06 17:07] VITALS: BP 177/63
[2021-09-06 20:00] VITALS: BP 111/50
[2021-09-07 00:22] VITALS: BP 151/58
[2021-09-07 05:55] LABS: HEMATOCRIT 22.7 % (37.0-47.0); HEMOGLOBIN 7.4 gm/dL (12.0-15.0); MCH 27.1 pg (26.0-34.0); MCHC 32.7 g/dL (28.0-37.0); MCV 82.8 fL (80.0-100.0); RBC 2.74 mil/uL (4.20-5.00); RDW 22.1 % (10.5-14.5); WBC 15.7 thou/uL (4.0-11.0)
[2021-09-07 06:19] LABS: ALBUMIN 1.9 g/dL (3.4-5.0); CALCIUM 8.4 mg/dL (8.5-10.1); POTASSIUM 4.4 mmol/L (3.5-5.1)
[2021-09-07 07:41] VITALS: BP 133/42
--- NOTE | 2021-09-07 09:12 | HC ---
[facility] [place] [place] [facility] [address] CONSULTATION Name: DELGADO BIGGS Room #: 456-P ADM IN M.R.#: [id number] Admission: 08/24/21 Attend Phys: Shoshana Zambrano MD Discharge: Date of : 57 Report #: [id number] THIS REPORT FOR: cc: Micah Fonseca MD, Christopher B. MD Jetmore, Allen B. MD ~ DATE OF SERVICE: 09/05/2021 WOUND CARE CONSULTATION REASON FOR CONSULTATION: Sacral gluteal pressure sores. HISTORY: The patient is a 66-year-old woman from [facility], who was admitted on 08/24. She has history of myasthenia gravis. She has diabetes mellitus type 2 with peripheral neuropathy and morbid obesity. The patient was admitted with increased fatigue from myasthenia gravis, low back pain, respiratory failure, weakness. Has been hospitalized now for 12 days. She was seen by Dr. Pinto and was noted to have sacral gluteal pressure sores. Wound care is now consulted. PAST MEDICAL HISTORY: Urinary tract infection, acute hypoxic respiratory failure, diabetes mellitus type 2 with skin ulcers, hypertension, myasthenia gravis, diabetes with peripheral neuropathy, congestive heart failure, peripheral vascular disease, CKD 3. LABORATORY DATA: Severe protein-calorie malnutrition, albumin 2.2. ALLERGIES: AMOXICILLIN, CLAVULANIC ACID, SULFA DRUGS, AND TRIMETHOPRIM. PHYSICAL EXAMINATION: GENERAL: Shows an awake, alert, morbidly obese woman, who is alert and conversant. HEENT: Mucous membranes are moist. LUNGS: Respirations are unlabored. ABDOMEN: Obese. EXTREMITIES: Lower legs are wrapped. BACK: Examination of the patient's back shows scattered superficial stage 3 pressure ulcers of the medial left and right buttock approximately 3 cm x 1 cm on each side and small midline distal sacral pressure ulcer measuring approximately 2 cm x 1 cm. These are superficial stage 3, somewhat tender. Barrier cream was placed. Low air loss mattress was ordered. IMPRESSION AND PLAN: 1. Morbid obesity. 2. Myasthenia gravis with immobility. 3. Chronic kidney disease 3. [address] [address] CONSULTATION Name: DELGADO BIGGS Shon Room #: 456-P [facility] IN ..#: [id number] Admission: 08/24/21 Attend Phys: Shoshana Zambrano MD Discharge: Date of : 57 Report #: [id number] 4. Diabetes mellitus type 2 with skin ulcerations. 5. Urinary tract infection. 6. Severe protein-calorie malnutrition. 7. Diabetic neuropathy. 8. Respiratory failure. 9. Congestive heart failure. 10. Peripheral vascular disease. 11. Small superficial bilateral gluteal and sacral stage 3 pressure ulcers. Offload with barrier cream, frequent repositioning and low air loss mattress ordered. Wound care team will follow. <ELECTRONICALLY SIGNED> By: Juan C Carr MD 09/07/21 0912 1210 [id number] Juan C Carr MD /aby
[2021-09-07 11:49] VITALS: BP 137/41
--- NOTE | 2021-09-07 14:48 | NUR ---
ASSUMED PATIENT CARE THIS AM. PT ABLE TO MAKE NEEDS KNOWN. IV REMAINS PATENT, MEDICATION GIVEN WITHOUT ISSUE. PATIENT DROWSY THIS AM, ABLE TO AROUSE EASILY. PATIENT ON 2 LITERS OF OXYGEN VIA NC. PATIENT WITH WRAPS TO BLE. PATIENT BEING REPOSITIONED IN BED. FALL PRECAUTIONS ARE IN PLACE, CALL LIGHT WITHIN REACH.
[2021-09-07 16:15] VITALS: BP 123/48
[2021-09-07 17:42] LABS: HCO3 25.6 mmol/L (22.0-26.0); PCO2 35.4 mmHg (35.0-45.0); PO2 107.6 mmHg (80.0-100.0); pH 7.477 (7.360-7.450); sO2 98.2 % (92.0-98.0)
[2021-09-07 19:47] VITALS: BP 138/43
--- NOTE | 2021-09-08 04:56 | NUR ---
ASSUMED PT CARE THIS PM. PT IS ALERT AND ORIENTED X4. PT IS ON 2L OF O2 VIA NC WITH NO RESP DISTRESS NOTED. PT HAS LUCY WRAP ON BLE WHICH ARE STILL INTACT. PT C/O OF PAIN WHICH WAS MANGED BY PRN PAIN MEDS. PT IS ON CONTACT ISO FOR MRSA IN NARES.PT DID NOT VERBALIZE ANY OTHER C ONCERNS. FALL PRECAUTIONS IN PLACE. WILL CONTINUE TO MONITOR.
[2021-09-08 06:11] LABS: HEMATOCRIT 22.2 % (37.0-47.0); HEMOGLOBIN 7.3 gm/dL (12.0-15.0); MCH 27.6 pg (26.0-34.0); MCHC 32.8 g/dL (28.0-37.0); MCV 84.1 fL (80.0-100.0); RBC 2.64 mil/uL (4.20-5.00); RDW 22.1 % (10.5-14.5); WBC 12.6 thou/uL (4.0-11.0)
[2021-09-08 06:35] LABS: ALBUMIN 1.8 g/dL (3.4-5.0); CALCIUM 8.2 mg/dL (8.5-10.1); CREATININE 2.1 mg/dL (0.6-1.0); PHOSPHORUS 5.1 mg/dL (2.5-4.9)
[2021-09-08 06:38] VITALS: BP 119/47
[2021-09-08 07:00] VITALS: BP 118/43
[2021-09-08 09:20] VITALS: BP 118/43
--- NOTE | 2021-09-08 09:38 | HC ---
[facility] [place] [address] CONSULTATION Name: DELGADO BIGGS Room #: 456-P ADM IN M.R.#: [id number] Admission: 08/24/21 Attend Phys: Shoshana Zambrano MD Discharge: Date of : 57 Report #: [id number] THIS REPORT FOR: cc: Micah Fonseca MD, Christopher B. MD Khosla, Parveen K. MD ~ DATE OF SERVICE: 09/07/2021 HISTORY OF PRESENT ILLNESS: This is a 66-year-old female patient who is known to me from prior admission. I have not gotten any records from [facility] where she was diagnosed with myasthenia gravis as well as neuropathy. She is admitted with an infection at this time and she is not doing well. She has multiple medical problems spread over virtually all the systems in the body. The major problem is infection. REVIEW OF SYSTEMS: Indicate acute hypoxic respiratory failure. She has a Proteus infection. She is being seen by Nephrology. She is a diabetic, hypertension. She has a known neuropathy, but rather she has CIDP is not clear. She has a history of congestive heart failure, hyperlipidemia, chronic kidney disease, GERD, depression, peripheral vascular disease. She has a history of fatigue, shortness of breath, lower back pain and leg swelling and inability to move the legs much. She had chest pain and abdominal pain intermittently. She also has some lung issues. When this patient was admitted last time we did a rather extensive workup on this patient. We did a thoracic spine, lumbar spine, cervical spine MRIs and in fact she had an MRI of the lumbar spine even in the past, she had it twice. She even had an MRI of the cervical spine, so basically she had an MRI of the whole spine in addition to the patient's MRI of the brain. When I saw this patient today as she was very sleepy and it is not clear how long her sleepiness is going on. This was a relevant 14-point review of system, which was carried out. PAST MEDICAL HISTORY: Positive for myasthenia gravis. At this time, she looks like she has pneumonia. FAMILY HISTORY: Unremarkable. SOCIAL HISTORY: She is too drowsy and does not provide a social history today. NEUROLOGIC: Her higher function was attempted. She talks a little, but she can tell me what month it is, what day it is. She is very sleepy. She needs constant stimulation to keep her awake and get any simple response from her. Cranial nerve examination II-XII was attempted. She can tell me where she sees double. She does not open her eyes continuously and it is very difficult to tell whether she has ptosis or not. Her movement was about the same as it was the last time I saw her. Her reflexes are diminished, but that is expected with her diabetes. I cannot tell about the sensory system examination because she is [address] [address] CONSULTATION Name: DELGADO BIGGS Shon Room #: 456-P [facility] IN M.R.#: [id number] Admission: 08/24/21 Attend Phys: Shoshana Zambrano MD Discharge: Date of : 57 Report #: [id number] not awake enough. She has problem with the lower extremities and it is difficult to tell. She does not appear to be short of breath, but it will be very difficult to do some pulmonary function tests on her. CARDIAC: Appear unremarkable. She is morbidly obese. VITAL SIGNS: Her blood pressure is 123/48, respiration is 20, pulse is 79, and temperature is 98.6. LABORATORY DATA: Indicates still increased white count at 15.7. IMPRESSION: This patient has numerous medical issues. I think the first thing we need to see how aggressive to be in this patient. I had asked for the record from [facility] and I will ask again. If she has an established diagnosis of myasthenia gravis, we can ask Renal to carry out a plasmapheresis on her. Again, only if this patient wants to be aggressive because this is a very unfortunate situation where the patient has numerous medical issues and it becomes very difficult to decide how aggressive to be in this patient. We will get a CT scan of the head done and see what does that show, usually that is normal. I will suggest a Pulmonary consult which I put one in. She is on pyridostigmine and that had been continued during this admission. Thank you very much for this referral and the patient was discussed with the hospitalist today. <ELECTRONICALLY SIGNED> By: Oleg Flores MD 09/08/21 0938 [id number] [id number] Oleg Flores MD /nt
--- NOTE | 2021-09-08 10:58 | NUR ---
Followup: changed nutrition status to moderate risk
--- NOTE | 2021-09-08 14:52 | NUR ---
ASSUMED PT CARE THIS AM. PATIENT A&OX4, ABLE TO MAKE NEEDS KNOWN. PATIENT IN ISOLATION FOR MRSA. RAGLAND CATHETER IN PLACE DRAINING WELL. PATIENT ON 2 LITERS OF OXYGEN VIA NC. MEDICATIONS TAKEN WITHOUT ISSUE. IV REMAINS PATENT. FALL PRECAUTIONS ARE IN PLACE, CALL LIGHT WITHIN REACH.
[2021-09-08] MEDS ORDERED: HYDROCODON-ACE1 EAC7 PO (15:28)
[2021-09-08] MEDS ORDERED: MEROPENEM500 MG IV (15:31)
--- NOTE | 2021-09-08 16:36 | NUR ---
CARE TEAM INDICATED THAT PT IS MEDICALLY STABLE TO DC BACK TO [facility] SKILLED THIS DAY. PT IS TO CONTINUE ON IV MEROPENEM FOR 1 WEEK UPON DC THEN FOLLOW UP WIHT ID. [facility] TRANSPORT ARRAGNED FOR 1700. PT IS AWARE SHE HAD BEEN RESISTANT INITALLY BUT WAS AGREEABLE TO DC SKILLED THIS DAY. CHART COPY MADE. ORDERS FAXED. NO OTHER CM INTERVENTION INDICATED. CASE CLOSED.
== END 2021-09-08 17:20 | DRG 871 ==
LOC: ER 15:47 → 4W 19:39 → EROBS 19:39 → 4W 22:47
PROVIDERS: Hospitalist; Internal Medicine; Internal Medicine Nephrology; Nurse Practitioner Family; Physician Assistant; ADMIT Hospitalist; ATTEND Hospitalist
DX: A41.59 Other Gram-negative sepsis (principal); L89.323 Pressure ulcer of left buttock, stage 3; L89.313 Pressure ulcer of right buttock, stage 3; L89.153 Pressure ulcer of sacral region, stage 3; J18.9 Pneumonia, unspecified organism; J96.21 Acute and chronic respiratory failure with hypoxia; G70.01 Myasthenia gravis with (acute) exacerbation; E43 Unspecified severe protein-calorie malnutrition; I50.31 Acute diastolic (congestive) heart failure; G92.8 Other toxic encephalopathy; I42.9 Cardiomyopathy, unspecified; N17.9 Acute kidney failure, unspecified; N39.0 Urinary tract infection, site not specified; M31.9 Necrotizing vasculopathy, unspecified; Z68.42 Body mass index [BMI] 45.0-49.9, adult; I13.0 Hypertensive heart and chronic kidney disease with heart failure and stage 1 through stage 4 chronic kidney disease, or unspecified chronic kidney disease; N18.30 Chronic kidney disease, stage 3 unspecified; E66.01 Morbid (severe) obesity due to excess calories; M54.9 Dorsalgia, unspecified; E11.59 Type 2 diabetes mellitus with other circulatory complications; I27.20 Pulmonary hypertension, unspecified; I89.0 Lymphedema, not elsewhere classified; E11.42 Type 2 diabetes mellitus with diabetic polyneuropathy; Z20.822 Contact with and (suspected) exposure to COVID-19; E11.51 Type 2 diabetes mellitus with diabetic peripheral angiopathy without gangrene; E87.5 Hyperkalemia; K59.00 Constipation, unspecified; E11.22 Type 2 diabetes mellitus with diabetic chronic kidney disease; F32.9 Major depressive disorder, single episode, unspecified; K21.9 Gastro-esophageal reflux disease without esophagitis; E78.5 Hyperlipidemia, unspecified; R53.81 Other malaise; D63.8 Anemia in other chronic diseases classified elsewhere; Z79.52 Long term (current) use of systemic steroids; Z88.1 Allergy status to other antibiotic agents; Z88.2 Allergy status to sulfonamides; Z88.8 Allergy status to other drugs, medicaments and biological substances; Z99.3 Dependence on wheelchair; Z28.21 Immunization not carried out because of patient refusal
CPT/HCPCS: 10045

== ENCOUNTER 2021-09-22 14:07 | Emergency (ER) | payer OTHER ==
[~2021-09-22] VITALS: Ht 172.7 cm; Wt 137.0 kg
--- NOTE | ~2021-09-22 | EMS ---
[facility] [address] [place] [address] EMS Patient Care Report Name: DELGADO BIGGS Room #: DEP Linda#: [id number] Admission: 09/22/21 Attend Phys: Discharge: 09/22/21 Date of : 57 Report #: [id number] THIS REPORT FOR: //name// Report Transmitted: 09/24/2021 14:10 EMS Care Summary [place], [place]/[facility] Incident [id number] @ 09/22/2021 13:41 Incident Location [address] Patient DELGADO BIGGS Female, 66 Years 1955 Patient Address [address] [facility] [address] [place] [address] Patient History Chronic Obstructive Pulmonary Disease (COPD),Hypertension (HTN),Morbid Obesity,Edema,Chronic Kidney Disease,Type 2 Diabetes,Cellulitis,Methicillin-resistant Staphylococcus aureus (MRSA), Patient Allergies Sulfa,Shrimp allergy,Amoxicillin, Patient Medications ASA, Amlodipine, Torsemide, Acetaminophen, Aripiprazole, Gabapentin, Protonix, Chief Complaint nausea Disposition Transported No Lights/[place] Dispatch Reason Sick Person Transported To [facility] Narrative staff called for pt who has been nauseated and had difficulty swallowing for [facility] [address] [place] [address] EMS Patient Care Report Name: DELGADO BIGGS Room #: DEP ER Linda#: [id number] Admission: 09/22/21 Attend Phys: Discharge: 09/22/21 Date of : 57 Report #: [id number] the past 2 days. pt is alert and reports the same. she has no airway compromise. pt req eval at [facility]. pt moved to [facility], cont on 02 2L/NC. IV attempt unsuccessful. transport w/o change. report to staff, rm 9 Initial Vitals @13:58P: 74,R: 18,BP: 135/64,Pain: 0/10,GCS: 15,Glucose: 146,SpO2: 98,Revised Trauma: 12, Assessments @13:48MENTAL:No Abnormalities,SKIN:No Abnormalities,HEENT:Neck/Airway: Other,Head/Face: No Abnormalities,LUNG SOUNDS:General: Nausea,ABDOMEN:General: Nausea,PELVIS//GI:EXTREMITIES:PULSE:NEURO: Impression Nausea Procedures @13:48 ALS Assessment Response: Unchanged @13:52 Stretcher Response: Unchanged @14:00 IV Therapy - Saline Lock 0cc (20 ga) Site: Forearm-Right Response: UnchangedFailed @13:58 3-Lead ECG Response: Unchanged @PTAOxygen FlowRate: 2 Device: Nasal Cannula (NC) Response: UnchangedSucceeded Timeline FOREIGN AGENT,Oxygen FlowRate: 2 Device: Nasal Cannula (NC) Response: UnchangedSucceeded, 13:39,Call Received 13:39,Dispatch Notified 13:41,Dispatched 13:41,En Route 13:46,On Scene 13:48,At Patient 13:48,ALS Assessment,Response: Unchanged 13:52,Stretcher,Response: Unchanged 13:58,BP: 135/64 M,PULSE: 74,RR: 18 R,SPO2: 98 Ox,ETCO2: ,B,PAIN: 0,GCS: 15, 13:58,3-Lead ECG,Response: Unchanged 14:00,IV Therapy - Saline Lock 0cc 20 ga Site: Forearm-Right,Response: UnchangedFailed, 14:02,Depart Scene 14:04,At Destination 14:46,Call Closed Disclaimer v1.1 Copyright [address] [employer] [facility] [address] [place] [address] EMS Patient Care Report Name: DELGADO BIGGS Room #: DEP Linda#: [id number] Admission: 09/22/21 Attend Phys: Discharge: 09/22/21 Date of : 57 Report #: [id number] This EMS Care Summary contains data elements from the applicable legal record (which may be displayed differently). It is designed to provide pertinent information for the following purposes: continuity of care, clinical quality, and state data reporting. The complete legal record is available to ED staff and administrators of the receiving hospital in [employer] Patient Tracker. All data is provided "as is."
[~2021-09-22 14:07] MED LIST changes: +ACIDOPHILUS LA1 EAC1 PO; +CLARITIN5 MG PO; +IPRAT-ALBUT 0.5-3 ML INH; +MEROPENEM500 MG IV; +ZAROXOLYN 5MG TA5 MG PO
[2021-09-22 15:44] LABS: ABSOLUTE NEUTROPHILS 10.6 thou/uL (1.4-8.2); BASOPHILS 0.7 % (0.0-2.0); HEMATOCRIT 25.7 % (37.0-47.0); HEMOGLOBIN 8.2 gm/dL (12.0-15.0); MCH 26.6 pg (26.0-34.0); MCHC 31.9 g/dL (28.0-37.0); MCV 83.4 fL (80.0-100.0); MONOCYTES 8.4 % (1.0-8.0); PLATELET COUNT 286 thou/uL (150-400); POLYS 84.9 % (36.0-66.0); RBC 3.08 mil/uL (4.20-5.00); RDW 20.8 % (10.5-14.5); WBC 12.5 thou/uL (4.0-11.0)
[2021-09-22 15:47] LABS: URINE BILIRUBIN NEGATIVE (Negative); URINE BLOOD 1+ (Negative); URINE CLARITY CLOUDY; URINE COLOR YELLOW; URINE GLUCOSE-RANDOM* NEGATIVE (Negative); URINE KETONES NEGATIVE (Negative); URINE NITRITE-REFLEX NEGATIVE (Negative); URINE PROTEIN (DIPSTICK) 1+ (Negative); URINE SPECIFIC GRAVITY >= 1.030 (1.005-1.035); URINE UROBILINOGEN 0.2 E.U./dl (0.2-1.0)
[2021-09-22 15:52] LABS: URINE LEUKOCYTES-REFLEX 2+ (Negative)
[2021-09-22 15:55] LABS: CALCIUM 8.5 mg/dL (8.5-10.1); CREATININE 2.5 mg/dL (0.6-1.0); POTASSIUM 3.9 mmol/L (3.5-5.1)
[2021-09-22 16:01] LABS: ALBUMIN 2.4 g/dL (3.4-5.0); TOTAL BILIRUBIN 0.4 mg/dL (0.2-1.0); TOTAL PROTEIN 7.7 g/dL (6.4-8.2)
[2021-09-22 16:11] LABS: SQUAMOUS 0-3 Few /LPF (0-3)
[2021-09-22 16:12] LABS: AMORPHOUS URATES Moderate /LPF (None Seen); CASTS None Seen /LPF (None Seen); URINE RBC 3-10 Few /HPF (NONE SEEN); YEAST-REFLEX Present (None Seen)
[2021-09-22] MEDS ORDERED: ZOFRAN ODT4 MG PO (17:29)
[2021-09-22] MEDS ORDERED: CEPHALEXIN500 MG PO (17:29)
[2021-09-22 17:58] LABS: ANISOCYTOSIS 1+
[2021-09-22 18:55] VITALS: BP 135/52
[2021-09-25] MEDS ORDERED: TETRACYCLINE H500 MG PO (10:07)
== END 2021-09-22 19:00 | disposition home or self-care (01) ==
LOC: ER 14:07
PROVIDERS: Emergency Medicine
DX: U07.1 COVID-19 (principal); R11.2 Nausea with vomiting, unspecified; R10.30 Lower abdominal pain, unspecified; I13.0 Hypertensive heart and chronic kidney disease with heart failure and stage 1 through stage 4 chronic kidney disease, or unspecified chronic kidney disease; E11.22 Type 2 diabetes mellitus with diabetic chronic kidney disease; N18.30 Chronic kidney disease, stage 3 unspecified; I50.9 Heart failure, unspecified; K21.9 Gastro-esophageal reflux disease without esophagitis; Z88.1 Allergy status to other antibiotic agents; Z88.8 Allergy status to other drugs, medicaments and biological substances; Z79.899 Other long term (current) drug therapy; Z79.82 Long term (current) use of aspirin